=== PATIENT | male | born 1980 | race Caucasian/White ===

== ENCOUNTER 2021-02-11 22:05 | Inpatient (IN) | payer MEDICAID ==
[~2021-02-11] VITALS: Ht 167.6 cm; Wt 86.6 kg
--- NOTE | 2021-02-11 22:37 | NUR ---
to bed 3, c/o ble swelling and pain, legs are weeping. stating it is difficult to ambulate. a/ox3.
--- NOTE | 2021-02-11 22:50 | NUR ---
patient arrived with a MILIND picc line one lumen, able to flush line. no blood return. patient states he is on iv abx merrem at home.
[2021-02-11] MEDS ORDERED: VANCOMYCIN 1 GM in IV D5W 250 ML IV ONE (23:00)
[2021-02-11] MEDS ORDERED: IV NS 0.9% 500 ML BAG IV ONE (23:00)
[2021-02-11] MEDS ORDERED: ONDANSETRON HCL/PF 4 MG/2 ML VIAL IVP ONE (23:00)
[2021-02-11] MEDS ORDERED: ONDANSETRON HCL/PF 4 MG/2 ML VIAL ONE (23:10)
[2021-02-11] MEDS ORDERED: VANCOMYCIN 1 GM VIAL ONE (23:11)
[2021-02-11 23:39] LABS: BASOPHILS # (AUTO) 0.1 K/uL (0.0-0.2); BASOPHILS % (AUTO) 0.5 % (0.0-2.0); EOSINOPHILS % (AUTO) 0.1 % (0.0-6.0); HEMATOCRIT 32 % (39-51); HEMOGLOBIN 10.9 g/dL (13.5-17.5); LYMPHOCYTES # (AUTO) 0.6 K/uL (0.8-4.8); LYMPHOCYTES % (AUTO) 3.6 % (20.0-44.0); MEAN CORPUSCULAR HGB CONC 34 g/dl (31.0-36.0); MEAN CORPUSCULAR VOLUME 79 fL (80-96); MONOCYTES # (AUTO) 0.8 K/uL (0.1-1.30); MONOCYTES % (AUTO) 5.2 % (2.0-12.0); NEUTROPHILS # (AUTO) 14.5 K/uL (1.8-8.9); NEUTROPHILS % (AUTO) 90.6 % (43.0-81.0); PLATELET COUNT (AUTO) 474 K/uL (150-450); RED BLOOD CELL COUNT(AUTO) 4.03 MIL/uL (4.5-6.0)
[2021-02-12 00:05] LABS: ALANINE AMINOTRANSFERASE 27 U/L (12-78); ALKALINE PHOSPHATASE 198 U/L (46-116); ASPARTATE AMINOTRANSFERASE 25 U/L (15-37); BILIRUBIN,DIRECT 0.2 mg/dL (0.0-0.2); BILIRUBIN,TOTAL 0.7 mg/dL (0.2-1.0); CALCIUM, SERUM 9.1 mg/dL (8.5-10.1); CARBON DIOXIDE 19 mmol/L (21-32); CREATININE 3.1 mg/dL (0.6-1.3); GLUCOSE 114 mg/dL (74-106); LIPASE 282 U/L (73-393); TOTAL PROTEIN, SERUM 9.2 g/dL (6.4-8.2); UREA NITROGEN, BLOOD 74 mg/dL (7-18)
[2021-02-12 00:18] LABS: CHLORIDE 83 mmol/L (98-107)
[2021-02-12 00:20] LABS: POTASSIUM 8.8 mmol/L (3.5-5.1); SODIUM SERUM 114 mmol/L (136-145)
[2021-02-12] MEDS ORDERED: INSULIN REGULAR, HUMAN 100 UNIT/ML 10 ML VIAL ONE (00:27)
[2021-02-12] MEDS ORDERED: DEXTROSE 50%-WATER 50 ML DISP.SYRIN ONE (00:27)
[2021-02-12] MEDS ORDERED: FUROSEMIDE 20 MG/2 ML VIAL ONE (00:27)
[2021-02-12] MEDS ORDERED: CALCIUM CHLORIDE 1,000 MG/10 ML DISP.SYRIN ONE (00:27)
[2021-02-12] MEDS ORDERED: SODIUM BICARBONATE SYR 50 MEQ/50 ML DISP.SYRIN ONE ×2 (00:27→01:57)
[2021-02-12] MEDS ORDERED: SODIUM POLYSTYRENE SULFONATE 15 G/60 ML BOTTLE ONE ×2 (00:29→03:08)
[2021-02-12] MEDS ORDERED: CALCIUM CHLORIDE 1,000 MG/10 ML DISP.SYRIN IV ONE (00:30)
[2021-02-12] MEDS ORDERED: SODIUM BICARBONATE SYR 50 MEQ/50 ML DISP.SYRIN IV ONE (00:30)
[2021-02-12] MEDS ORDERED: INSULIN REGULAR, HUMAN 100 UNIT/ML 10 ML VIAL IV ONE (00:30)
[2021-02-12] MEDS ORDERED: FUROSEMIDE 40 MG/4 ML VIAL IV ONE (00:30)
[2021-02-12] MEDS ORDERED: DEXTROSE 50%-WATER 50 ML DISP.SYRIN IV ONE (00:30)
[2021-02-12] MEDS ORDERED: SODIUM BICARBONATE SYR 100 MEQ in IV D5W 1,000 ML IV ONE (00:30)
[2021-02-12] MEDS ORDERED: ALBUTEROL FS 2.5 MG/3 ML VIAL.NEB NEB ONE (00:30)
[2021-02-12] MEDS ORDERED: SODIUM POLYSTYRENE SULFONATE 15 G/60 ML BOTTLE PO ONE ×2 (00:30→02:00)
[2021-02-12] MEDS ORDERED: Sodium Bicarbonate 50 MEQ/50 ML VIAL IV ONE (01:40)
[2021-02-12] MEDS ORDERED: ALBUTEROL FS 2.5 MG/3 ML VIAL.NEB ONE (02:03)
--- NOTE | 2021-02-12 02:10 | NUR ---
MRSA SWAB COLLECTED AND SENT TO LAB. PATIENT'S BELONGINGS LIST DONE.
[2021-02-12] MEDS ORDERED: CLONIDINE HCL 0.1 MG TABLET PO PRN (03:30)
[2021-02-12] MEDS ORDERED: ACETAMINOPHEN 325 MG TABLET PO PRN (03:30)
[2021-02-12] MEDS ORDERED: IV 1/2NS 1000 ML 1,000 ML IV PRN (03:30)
[2021-02-12] MEDS ORDERED: HYDROCODONE/APAP 5/325MG TABLET PO PRN (03:30)
[2021-02-12] MEDS ORDERED: ONDANSETRON HCL/PF 4 MG/2 ML VIAL IV PRN (03:30)
[2021-02-12 03:42] LABS: BILIRUBIN,URINE NEGATIVE (NEGATIVE); COLOR,URINE YELLOW (YELLOW); LEUKOCYTE ESTERASE ,URINE TRACE (NEGATIVE); NITRITE, URINE NEGATIVE (NEGATIVE); PROTEIN,URINE NEGATIVE (NEGATIVE); UGLUCOSE NEGATIVE (NEGATIVE); UROBILINOGEN,URINE 0.2 EU/dL (0.2)
[2021-02-12] MEDS ORDERED: MEROPENEM 1 G in IV NS 0.9% 100 ML IV ONE (04:00)
--- NOTE | 2021-02-12 04:06 | NUR ---
CALLED OVERNIGHT PHARMACY TO HAVE MEDS VERIFIED
[2021-02-12] MEDS ORDERED: MEROPENEM 1 G VIAL IV ONE (04:07)
[2021-02-12 04:14] LABS: BACTERIA,URINE Rare /HPF (None Seen); RBC,URINE 0-2 /HPF (0-2); SQUAMOUS EPITHELIAL CELL,UR Few /HPF (None Seen); YEAST,URINE Few /HPF (None Seen)
[2021-02-12 05:31] LABS: BASOPHILS # (AUTO) 0.1 K/uL (0.0-0.2); BASOPHILS % (AUTO) 0.6 % (0.0-2.0); EOSINOPHILS % (AUTO) 0.3 % (0.0-6.0); HEMATOCRIT 28 % (39-51); HEMOGLOBIN 9.7 g/dL (13.5-17.5); LYMPHOCYTES # (AUTO) 0.6 K/uL (0.8-4.8); LYMPHOCYTES % (AUTO) 4.2 % (20.0-44.0); MEAN CORPUSCULAR HGB CONC 35 g/dl (31.0-36.0); MEAN CORPUSCULAR VOLUME 78 fL (80-96); MONOCYTES # (AUTO) 1.1 K/uL (0.1-1.30); NEUTROPHILS % (AUTO) 86.9 % (43.0-81.0); PLATELET COUNT (AUTO) 416 K/uL (150-450); RED BLOOD CELL COUNT(AUTO) 3.56 MIL/uL (4.5-6.0); WHITE BLOOD COUNT (AUTO) 13.8 K/uL (4.3-11.0)
[2021-02-12 05:53] LABS: ALBUMIN 2.4 g/dL (3.4-5.0); BILIRUBIN,TOTAL 0.7 mg/dL (0.2-1.0); CALCIUM, SERUM 8.2 mg/dL (8.5-10.1); CREATININE 2.8 mg/dL (0.6-1.3); POTASSIUM 5.1 mmol/L (3.5-5.1); TOTAL PROTEIN, SERUM 7.4 g/dL (6.4-8.2)
--- NOTE | 2021-02-12 06:26 | NUR ---
informed dr. [facility] critical lab for na 119. patient currently running na bicarb @100. k level now 5.1. received orders to stop na bicarb, charge ivf order to ns@100. fluid restriction 500ml and sodium chloride 1000mg q TID. order read back noted and carried out.
[2021-02-12] MEDS: IV NS 0.9% 1,000 ML IV PRN (06:33)
--- NOTE | 2021-02-12 07:29 | NUR ---
ASSESSED PT AWAKE ON BED AAOX4, NOT IN RESPIRATORY DISTRESS, V/S STABLE, KEPT RESTED AND COMFORTABLE. WILL CONTINUE TO MONITOR.
--- NOTE | 2021-02-12 08:15 | NUR ---
AT BEDSIDE FOR PT EVAL.
--- NOTE | 2021-02-12 08:32 | NUR ---
PER RN NENET CALL BACK IN 15MINS STILL PASSING MEDS.
--- NOTE | 2021-02-12 08:38 | NUR ---
REPORT GIVEN TO ELIZABET GUERRA FOR HEAVEN.
[2021-02-12] MEDS ORDERED: MEROPENEM 1 G in IV NS 0.9% 100 ML IV SCH (09:00)
[2021-02-12] MEDS ORDERED: LEVOTHYROXINE SODIUM 50 MCG TABLET PO SCH (09:00)
[2021-02-12 09:15] VITALS: BP 116/72
--- NOTE | 2021-02-12 09:15 | NUR ---
HEALTH CARE ADMINISTRATOR ADMITTING NOTES RECEIVED PATIENT FROM E.R ACCOMPANIED BY NICHOL, RN. PATIENT IS AWAKE, ALERT AND ORIENTED X 4, ABLE TO MAKE NEEDS KNOWN. ON ROOM AIR TOLERATING WELL, NO SOB NOTED. IN NO ACUTE DISTRESS NOTED. NO COMPLAINTS OF PAIN AT THE TIME OF ASSESSMENT. VITAL SIGNS TAKEN AND RECORDED FOLLOWS: TEMP 97.7, DE 98, RR 18, BP 116/72, O2 SAT AT 98%. IV ACCESS ON MILIND PICC LINE, ONGOING NS 1L X 75CC/HR. INFUSING WELL, NO S/SX OF INFILTRATION NOTED. NOTED WITH CELLULITIS ON BLE. EDEMA ON BLE (3+) PICTURES TAKEN AND FILED TO CHART. WOUND CONSULT TRIGGERED. ON FLUID ORAL FLUID LIMITS OF 500 ML/DAY, PATIENT IS AWARE. HOOKED TO TELE MONITOR SHOWING SINUS RHYTHM HR AT 70'S. SAFETY PRECAUTIONS IN PLACE: BED ON LOWEST LOCKED POSITION. CALL LIGHT WITHIN EASY REACH. SIDE RAILS UP X 2, WILL CONTINUE TO MONITOR PATIENT ACCORDINGLY.
[2021-02-12 09:30] VITALS: BP 116/72
--- NOTE | 2021-02-12 10:15 | NUR ---
RN NOTES PATIENT REFUSED DVT PUMP.
[2021-02-12] MEDS: METHADONE HCL 10 MG TABLET PO SCH (10:17)
[2021-02-12] MEDS: SODIUM CHLORIDE 1000 MG TABLET PO SCH ×3 (10:17→16:26)
[2021-02-12] MEDS: ALLOPURINOL 100 MG TABLET PO SCH ×2 (10:17→16:26)
[2021-02-12] MEDS: MEROPENEM 1 G in IV NS 0.9% 100 ML IV SCH (15:26)
[2021-02-12 16:00] VITALS: BP 104/59
--- NOTE | 2021-02-12 18:22 | NUR ---
ULTIMATE HOOPS TRAINER CLOSING NOTES PATIENT IN BED, AWAKE, ALERT AND ORIENTED X 4, ABLE TO MAKE NEEDS KNOWN. ON ROOM AIR TOLERATING WELL, NO SOB NOTED. IN NO ACUTE DISTRESS NOTED. NO COMPLAINTS OF PAIN AT THE TIME IV ACCESS ON MILIND PICC LINE, ONGOING NS 1L X 75CC/HR. INFUSING WELL, NO S/SX OF INFILTRATION NOTED. CELLULITIS ON BLE, WOUND CARE DONE, EDEMA ON BLE (3+). ON ORAL FLUID LIMITS OF 500 ML/DAY, PATIENT IS AWARE. ON TELE MONITOR SHOWING SINUS RHYTHM HR AT 80'S. SAFETY PRECAUTIONS IN PLACE: BED ON LOWEST LOCKED POSITION. CALL LIGHT WITHIN EASY REACH. SIDE RAILS UP X 2, ALL NEEDS ATTENDED AND MET, DUE MEDS GIVEN ORDERED. WILL ENDORSE TO ONCOMING SHIFT FOR HEAVEN.
--- NOTE | 2021-02-12 19:00 | NUR ---
PEST CONTROL WORKER OPENING NOTE RECEIVED PT AWAKE IN BED. A/OX4. PT STABLE ON ROOM AIR. NO SOB NOTED, NO S/S OF RESPIRATORY DISTRESS. PT IS ON EXTERNAL CHECKER CASHIER READING ST 102. NO C/O PAIN AT THIS TIME. IV ACCESS IN R UPPER PICC LINE, INFUSING NS @ 100ML/HR. IV IS INTACT, PATENT AND FLUSHING WELL. CELLULITIS ON BLE, EDEMA ON BLE 3+. SAFETY MEASURES MAINTAINED TAT ALL TIMES. BED IN LOWEST LOCKED POSITION, HOB ELEVATED, SIDE RAILS UP X2. CALL LIGHT AND TABLE WITHIN REACH. WILL CONTINUE WITH PLAN OF CARE.).
[2021-02-12 20:00] VITALS: BP 101/61
[2021-02-12] MEDS: SODIUM BICARBONATE 650 MG TABLET PO SCH (20:50)
[2021-02-12] MEDS: OLANZAPINE 10 MG TABLET PO SCH (21:10)
[2021-02-12] MEDS: VANCOMYCIN 1.25 GM in IV D5W 250 ML IV SCH (22:42)
[2021-02-13] VITALS: BP 93/58
[2021-02-13 01:15] LABS: BILIRUBIN,URINE NEGATIVE (NEGATIVE); COLOR,URINE YELLOW (YELLOW); LEUKOCYTE ESTERASE ,URINE NEGATIVE (NEGATIVE); NITRITE, URINE NEGATIVE (NEGATIVE); PH,URINE 5.5 (5.0-8.0); PROTEIN,URINE TRACE mg/dl (NEGATIVE); UGLUCOSE NEGATIVE (NEGATIVE); UROBILINOGEN,URINE 0.2 EU/dL (0.2)
[2021-02-13 02:31] LABS: BACTERIA,URINE Moderate /HPF (None Seen); SQUAMOUS EPITHELIAL CELL,UR Few /HPF (None Seen); WBC,URINE 51-80 /HPF (0-3); YEAST,URINE Many /HPF (None Seen)
[2021-02-13 04:00] VITALS: BP 94/56
[2021-02-13 04:06] LABS: EOSINOPHIL,URINE Few
[2021-02-13] MEDS: MEROPENEM 1 G in IV NS 0.9% 100 ML IV SCH ×2 (04:07→15:25)
[2021-02-13] MEDS: IV NS 0.9% 1,000 ML IV PRN (04:16)
[2021-02-13 06:14] LABS: BASOPHILS # (AUTO) 0.1 K/uL (0.0-0.2); BASOPHILS % (AUTO) 1.1 % (0.0-2.0); EOSINOPHILS % (AUTO) 3.3 % (0.0-6.0); HEMATOCRIT 24 % (39-51); HEMOGLOBIN 8.3 g/dL (13.5-17.5); LYMPHOCYTES # (AUTO) 0.7 K/uL (0.8-4.8); LYMPHOCYTES % (AUTO) 11.3 % (20.0-44.0); MEAN CORPUSCULAR HGB CONC 35 g/dl (31.0-36.0); MEAN CORPUSCULAR VOLUME 79 fL (80-96); MONOCYTES # (AUTO) 0.6 K/uL (0.1-1.30); NEUTROPHILS # (AUTO) 4.7 K/uL (1.8-8.9); NEUTROPHILS % (AUTO) 74.3 % (43.0-81.0); PLATELET COUNT (AUTO) 356 K/uL (150-450); RED BLOOD CELL COUNT(AUTO) 2.98 MIL/uL (4.5-6.0); WHITE BLOOD COUNT (AUTO) 6.4 K/uL (4.3-11.0)
--- NOTE | 2021-02-13 06:30 | NUR ---
CONTRACT SPECIALIST CLOSING NOTE RECEIVED PT AWAKE IN BED.A/OX4. PT STABLE ON ROOM AIR.NO SOB NOTED, NO S/S OF RESPIRATORY DISTRESS. PT IS BR. PT IS ON EXTERNAL CARDIAC MONITORING READING SR @71. PT DENIES PAIN OR DISCOMFORT AT THIS TIME. . ALL NEEDS HAVE BEEN MET. . SAFETY, SEIZURE, AND ASPIRATION PRECAUTIONS MAINTAINED AT ALL TIMES. BED IN LOWEST LOCKED POSITION WITH BED ALARM ON SIDE RAILS UP X2. HOB ELEVATED. CALL LIGHT AND TABLE WITHIN REACH. WILL ENDORSE TO ONCOMING NURSE FOR HEAVEN. Addendum: 02/13/21 at 0727 by HARITHA GOMEZ RN CONTRACT SPECIALIST CLOSING NOTE RECEIVED PT AWAKE IN BED.A/OX4. PT STABLE ON ROOM AIR.NO SOB NOTED, NO S/S OF RESPIRATORY DISTRESS. PT IS BR. PT IS ON EXTERNAL CARDIAC MONITORING READING ST @101. PT DENIES PAIN OR DISCOMFORT AT THIS TIME. . ALL NEEDS HAVE BEEN MET. . SAFETY, SEIZURE, AND ASPIRATION PRECAUTIONS MAINTAINED AT ALL TIMES. BED IN LOWEST LOCKED POSITION WITH BED ALARM ON SIDE RAILS UP X2. HOB ELEVATED. CALL LIGHT AND TABLE WITHIN REACH. WILL ENDORSE TO ONCOMING NURSE FOR HEAVEN.
[2021-02-13 07:31] LABS: ALBUMIN 1.9 g/dL (3.4-5.0); BILIRUBIN,TOTAL 0.5 mg/dL (0.2-1.0); CALCIUM, SERUM 6.9 mg/dL (8.5-10.1); CREATININE 2.2 mg/dL (0.6-1.3); MAGNESIUM 1.9 mg/dL (1.8-2.4); PHOSPHORUS 6.4 mg/dL (2.5-4.9); POTASSIUM 3.6 mmol/L (3.5-5.1)
--- NOTE | 2021-02-13 07:36 | NUR ---
CLUB CONCIERGE OPENING NOTE RECEIVED PATIENT STANDING NEXT TO BED, ALERT AND ORIENTED X 4. NOT IN ANY APPARENT DISTRESS. IV ACCESS MILIND PICC LINE PATENT AND INTACT. EXTERNAL TELE MONITOR WITH ST 111. BREATHING IS EVEN AND UNLABORED. TOLERATING WELL ON ROOM AIR. SAFETY MEASURES IN PLACE WITH BED LOCKED AT LOW POSITION AND SIDE RAILS UP X2. CALL LIGHT IS WITHIN REACH. WILL CONTINUE TO MONITOR THROUGHOUT SHIFT.
[2021-02-13 08:12] VITALS: BP 96/54
[2021-02-13] MEDS: ALLOPURINOL 100 MG TABLET PO SCH ×2 (08:48→16:39)
[2021-02-13] MEDS: SODIUM BICARBONATE 650 MG TABLET PO SCH ×3 (08:48→16:39)
[2021-02-13] MEDS: METHADONE HCL 10 MG TABLET PO SCH (08:48)
[2021-02-13] MEDS: SODIUM CHLORIDE 1000 MG TABLET PO SCH ×3 (08:48→16:39)
[2021-02-13] MEDS ORDERED: HYDR-4303 PO (09:18)
[2021-02-13] MEDS ORDERED: MERO1VIA23 IV (09:18)
[2021-02-13] MEDS ORDERED: ONDA4VIA52 IJ (09:18)
[2021-02-13] MEDS ORDERED: SODI1TAB66 PO (09:18)
[2021-02-13] MEDS ORDERED: ALLO100T PO (09:18)
[2021-02-13] MEDS ORDERED: OLAN10TA3 PO (09:18)
[2021-02-13] MEDS ORDERED: FERR325T23 PO (09:18)
[2021-02-13] MEDS ORDERED: SODI650T PO (09:18)
--- NOTE | 2021-02-13 10:09 | NUR ---
WOUND CARE CONSULT: PT PRESENTS WITH RT THIGH WOUND AND BILATERAL LOWER LEG AND FOOT WOUNDS, PRESENT ON ADMISSION. PT DID NOT WANT LOWER LEG/FOOT DRESSINGS REMOVED. SURGICAL AND DPM CONSULTS CALLED TO DR MTZ AND DR EISENBERG. PT IS CONTINENT AND ABLE TO REPOSITION HIMSELF IN BED. MD IN AGREEMENT WITH PLAN OF CARE.
[2021-02-13] MEDS ORDERED: SULF1TAB48 PO (11:16)
[2021-02-13] MEDS ORDERED: CIPR-262 PO (11:16)
[2021-02-13 12:00] VITALS: BP 101/64
[2021-02-13 16:26] VITALS: BP 92/50
--- NOTE | 2021-02-13 18:29 | NUR ---
BROKERAGE PURCHASE AND SALE CLERK CLOSING NOTE PATIENT IS ASLEEP IN BED, RESTING COMFORTABLY. NOT IN ANY APPARENT DISTRESS. . BREATHING IS EVEN AND UNLABORED. TOLERATING WELL ON ROOM AIR. SAFETY MEASURES MAINTAINED. CALL LIGHT IS WITHIN REACH. WILL ENDORSE CONTINUITY OF CARE TO ONCOMING SHIFT.
--- NOTE | 2021-02-13 19:20 | NUR ---
RN OPENING NOTE RECEIVED PT AWAKE IN BED, WATCHING TV. A/OX4, DENIES PAIN/DISCOMFORT. RESPIRATIONS EVEN/UNLABORED, ON ROOM AIR, NO SOB. IV SITE MILIND PICC LINE INTACT/PATENT. ON TELE MONITOR, CURRENTLY ST 106. NOTED WITH WOUND DRESSINGS TO BLE C/D/I. PT IN NO ACUTE DISTRESS. SAFETY MEASURES IN PLACE, BED IN LOWEST LOCKED POSITION, S/R UP X2, CALL LIGHT WITHIN REACH. WILL CONT TO MONITOR.
[2021-02-13 20:27] VITALS: BP 96/48
[2021-02-13] MEDS: OLANZAPINE 10 MG TABLET PO SCH (21:21)
[2021-02-13] MEDS: VANCOMYCIN 1.25 GM in IV D5W 250 ML IV SCH (22:03)
[2021-02-13] MEDS: IV NS 0.9% 1,000 ML IV SCH (22:37)
[2021-02-14 00:02] VITALS: BP 88/46
[2021-02-14 02:16] VITALS: BP 98/56
[2021-02-14] MEDS: MEROPENEM 1 G in IV NS 0.9% 100 ML IV SCH ×2 (03:03→15:49)
[2021-02-14 04:00] VITALS: BP 98/65
--- NOTE | 2021-02-14 06:06 | NUR ---
RN NOTE PT CALLED AND STATED, "THE IV LINE IS OUT. I DON'T KNOW HOW" NOTED MILIND PICC LINE IS ALL THE WAY OUT, UNDER HIS ARM. THE CATH TIP IS INTACT, AND NO BLEEDING WAS NOTED ON THE PT. CHARGE NURSE MADE AWARE. REINSERTED PERIPHERAL IV ON L-LAT.WRIST #22G, WITH GOOD BLOOD RETURN. PT TOLERATED IT WELL.
[2021-02-14 06:20] LABS: BASOPHILS # (AUTO) 0.1 K/uL (0.0-0.2); BASOPHILS % (AUTO) 1.3 % (0.0-2.0); EOSINOPHILS % (AUTO) 6.1 % (0.0-6.0); HEMATOCRIT 22 % (39-51); HEMOGLOBIN 7.9 g/dL (13.5-17.5); LYMPHOCYTES # (AUTO) 0.8 K/uL (0.8-4.8); LYMPHOCYTES % (AUTO) 13.6 % (20.0-44.0); MEAN CORPUSCULAR HGB CONC 36 g/dl (31.0-36.0); MEAN CORPUSCULAR VOLUME 80 fL (80-96); MONOCYTES # (AUTO) 0.9 K/uL (0.1-1.30); MONOCYTES % (AUTO) 14.3 % (2.0-12.0); NEUTROPHILS % (AUTO) 64.7 % (43.0-81.0); PLATELET COUNT (AUTO) 370 K/uL (150-450); RED BLOOD CELL COUNT(AUTO) 2.81 MIL/uL (4.5-6.0); WHITE BLOOD COUNT (AUTO) 6.2 K/uL (4.3-11.0)
--- NOTE | 2021-02-14 06:50 | NUR ---
RN CLOSING NOTE PT RESTING IN BED, EASILY AROUSABLE TO STIMULI. A/OX4, NO C/O PAIN/DISCOMFORT. ON ROOM AIR, NO SOB. IV SITE L-LAT.WRIST #22 INTACT/PATENT. ON TELE MONITOR, CURRENTLY SR @86. WOUND DRESSINGS TO BLE C/D/I. NO ACUTE EVENTS DURING THE NIGHT. SAFETY MEASURES MAINTAINED, BED IN LOWEST LOCKED POSITION, S/R UPX2, CALL LIGHT WITHIN REACH. WILL ENDORSE TO NEXT SHIFT NURSE.
[2021-02-14 06:59] LABS: CALCIUM, SERUM 7.2 mg/dL (8.5-10.1); CREATININE 1.8 mg/dL (0.6-1.3)
--- NOTE | 2021-02-14 07:30 | NUR ---
RN OPENING NOTE PT AWAKE IN BED RESTING. CURRENTLY ON RA WITH NO SOB OR RESPIRATORY DISTRESS PRESENT. A/O X4 AND CITIZEN OF [place] SPEAKING. ON METAL TILE SETTER. NO EDEMA PRESENT. ON BEDREST. SKIN ISSUES PRESENT, PICTURES IN CHART, WOUND CARE ORDERED. ON FLUID RESTRICTION OF 200 ML/DAY. IV PRESENT ON L WRIST 22G AND FLUSHES WELL. IVF RUNNING. LABS AND ORDERS REVIEWED. SAFETY MEASURES IN PLACE. SIDE RAILS RAISED. BED LOWERED. CALL LIGHT WITHIN REACH. WILL CONTINUE TO MONITOR.
[2021-02-14 07:32] LABS: POTASSIUM 2.5 mmol/L (3.5-5.1)
--- NOTE | 2021-02-14 07:40 | NUR ---
RN NOTE LAB CALLED FOR POTASSIUM 2.3 MD NOTIFIED. WILL CONTINUE TO MONITOR.
[2021-02-14 08:00] VITALS: BP 93/59
[2021-02-14 08:07] LABS: CREATININE, URINE 36.2 MG/DL (30.0-125.0); URINE TOTAL PROTEIN 34.6 mg/dL (0-11.9)
[2021-02-14] MEDS: IV NS 0.9% 1,000 ML IV SCH ×2 (08:35→18:33)
[2021-02-14] MEDS: ALLOPURINOL 100 MG TABLET PO SCH ×2 (08:35→16:24)
[2021-02-14] MEDS: METHADONE HCL 10 MG TABLET PO SCH (08:35)
[2021-02-14] MEDS: SODIUM BICARBONATE 650 MG TABLET PO SCH ×3 (08:35→16:24)
[2021-02-14] MEDS: SODIUM CHLORIDE 1000 MG TABLET PO SCH ×3 (08:35→16:24)
[2021-02-14 10:07] LABS: *SPE A/G RATIO 0.6 (0.7-1.7); *SPE ALPHA-1-GLOBULIN 0.2 g/dL (0.0-0.4); *SPE ALPHA-2-GLOBULIN 0.7 g/dL (0.4-1.0); *SPE BETA GLOBULIN 0.8 g/dL (0.7-1.3); *SPE M-SPIKE Not Observed g/dL (Not Observed)
[2021-02-14] MEDS: POTASSIUM CHLORIDE 20 MEQ TAB.PRT.SR PO SCH ×2 (10:08→11:32)
[2021-02-14] MEDS: POTASSIUM CL. PREMIX PERIPHER. 50 ML IV SCH ×8 (10:08→17:01)
[2021-02-14] MEDS ORDERED: LINEZOLID RTU BAG 600 MG in PREMIX 1 EA IV SCH (11:00)
--- NOTE | 2021-02-14 15:25 | NUR ---
SS Consult: ALEXIS requested for SSI application information. SW met with pt. bedside and provided him with instructions on different ways to apply for SSI. Pt. was receptive and stated he has started the online application and will follow up with his PCP for the completion of it. SS will be available as needed.
[2021-02-14 16:00] VITALS: BP 96/59
--- NOTE | 2021-02-14 16:00 | NUR ---
RN NOTE PT NO LONGER TOLERATING POTASSIUM IV DUE TO PAIN. REFUSES ADMINISTRATION OF POTASSIUM IV. EDUCATED PT ON RISKS AND BENEFITS OF DOING SO. WILL CONTINUE TO MONITOR.
[2021-02-14] MEDS: FLUCONAZOLE (100 MG) 100 MG TABLET PO SCH (16:24)
--- NOTE | 2021-02-14 17:56 | NUR ---
RN CLOSING NOTE PT AWAKE IN BED RESTING. CURRENTLY ON RA WITH NO SOB OR RESPIRATORY DISTRESS PRESENT. A/O X4 AND [place]ESE SPEAKING. ON ART LIBRARIAN. NO EDEMA PRESENT. ON BEDREST. SKIN ISSUES PRESENT, PICTURES IN CHART, WOUND CARE ORDERED. ON FLUID RESTRICTION OF 500 ML/DAY. IV PRESENT ON L WRIST 22G AND FLUSHES WELL. IVF RUNNING. ROUTINE MEDS GIVEN. LABS AND ORDERS REVIEWED. SAFETY MEASURES IN PLACE. SIDE RAILS RAISED. BED LOWERED. CALL LIGHT WITHIN REACH. REPORT TO BE GIVEN TO NIGHT NURS FOR HEAVEN.
--- NOTE | 2021-02-14 19:00 | NUR ---
COURTESY DRIVER OPENING NOTE RECEIVED PT AWAKE IN BED. A/OX4. PT STABLE ON ROOM AIR. NO SOB NOTED, NO S/S OF RESPIRATORY DISTRESS. PT IS ON EXTERNAL SEWING MACHINE BOBBIN WINDER READING. NO C/O PAIN AT THIS TIME. IV ACCESS IN RIGHT WRIST # 20,, IV IS INTACT, PATENT, AND FLUSHING WELL. SAFETY MEASURES MAINTAINED TAT ALL TIMES. BED IN LOWEST LOCKED POSITION, HOB ELEVATED, SIDE RAILS UP X2. CALL LIGHT AND TABLE WITHIN REACH. WILL CONTINUE WITH PLAN OF CARE.
[2021-02-14 20:00] VITALS: BP 98/63
[2021-02-14] MEDS: OLANZAPINE 10 MG TABLET PO SCH (22:11)
[2021-02-14] MEDS: VANCOMYCIN 1.5 GM in IV D5W 500ml IV SCH (22:29)
[2021-02-15] VITALS: BP 80/44
[2021-02-15] MEDS: MEROPENEM 1 G in IV NS 0.9% 100 ML IV SCH ×2 (03:29→15:02)
[2021-02-15 04:00] VITALS: BP 84/46
[2021-02-15] MEDS: IV NS 0.9% 1,000 ML IV SCH ×2 (05:18→14:57)
[2021-02-15 06:11] LABS: BASOPHILS # (AUTO) 0.2 K/uL (0.0-0.2); BASOPHILS % (AUTO) 3.7 % (0.0-2.0); EOSINOPHILS % (AUTO) 8.1 % (0.0-6.0); HEMATOCRIT 23 % (39-51); HEMOGLOBIN 7.8 g/dL (13.5-17.5); LYMPHOCYTES % (AUTO) 22.3 % (20.0-44.0); MEAN CORPUSCULAR HGB CONC 35 g/dl (31.0-36.0); MEAN CORPUSCULAR VOLUME 80 fL (80-96); MONOCYTES # (AUTO) 0.7 K/uL (0.1-1.30); MONOCYTES % (AUTO) 15.5 % (2.0-12.0); NEUTROPHILS # (AUTO) 2.4 K/uL (1.8-8.9); NEUTROPHILS % (AUTO) 50.4 % (43.0-81.0); PLATELET COUNT (AUTO) 403 K/uL (150-450); RED BLOOD CELL COUNT(AUTO) 2.79 MIL/uL (4.5-6.0); WHITE BLOOD COUNT (AUTO) 4.7 K/uL (4.3-11.0)
--- NOTE | 2021-02-15 06:22 | NUR ---
BANQUET SERVER ON CALL CLOSING NOTE PT IS AWAKE IN BED AT THIS TIME.A/OX4, ABLE TO MAKE NEEDS KNOWN. PT IS BR, STABLE ON ROOM AIR. NO SOB, S/S OF RESPIRATORY DISTRESS NOTED. PT DENIES PAIN OR DISCOMFORT AT THIS TIME. BLE+3 EDEMA . IV ACCESS IN RIGHT UPPER ARM MIDLINE # 18, INTACT, PATENT AND INFUSING NS @100ML/HR. ALL NEEDS HAVE BEEN MET. SAFETY, SEIZURE, AND ASPIRATION PRECAUTIONS MAINTAINED AT ALL TIMES. BED IN LOWEST LOCKED POSITION WITH BED ALARM ON, SIDE RAILS UPX2, HOB ELEVATED, CALL LIGHT AND TABLE WITHIN REACH. WILL ENDORSE TO ONCOMING NURSE FOR HEAVEN.
[2021-02-15 06:55] LABS: CALCIUM, SERUM 7.4 mg/dL (8.5-10.1); CREATININE 1.6 mg/dL (0.6-1.3); POTASSIUM 3.3 mmol/L (3.5-5.1)
--- NOTE | 2021-02-15 07:41 | NUR ---
SOCIAL HUMAN SERVICES ASSISTANTS OPENING NOTES Pt is awake, A/O X 4, no respiratory distress, no SOB. IV hydration NS @100cc/hr. Safety precautions implemented, bed locked in lowest position, call light within reach. Patient signed consent for nuclear medicine parathyroid, will have scan later this morning.
[2021-02-15 08:00] VITALS: BP 102/67
[2021-02-15] MEDS: SODIUM BICARBONATE 650 MG TABLET PO SCH ×3 (08:16→17:13)
[2021-02-15] MEDS: SODIUM CHLORIDE 1000 MG TABLET PO SCH ×3 (08:16→17:12)
[2021-02-15] MEDS: METHADONE HCL 10 MG TABLET PO SCH (08:16)
[2021-02-15] MEDS: FLUCONAZOLE (100 MG) 100 MG TABLET PO SCH (08:16)
[2021-02-15] MEDS: ALLOPURINOL 100 MG TABLET PO SCH ×2 (08:16→17:13)
[2021-02-15 09:56] LABS: EOSINOPHILS % (MANUAL) 6 % (0-4); LYMPHOCYTES % (MANUAL) 22 % (16-48); METAMYELOCYTES % 1 % (0-0); MONOCYTES % (MANUAL) 11 % (0-11.0); MYELOCYTES % 2 % (0-0); NEUTROPHILS % (MANUAL) 58 (42-76)
[2021-02-15] MEDS ORDERED: POTASSIUM CHLORIDE 10 MEQ TABLET.SA PO ONE (10:00)
[2021-02-15] MEDS ORDERED: POTASSIUM CHLORIDE 20 MEQ TAB.PRT.SR PO ONE (11:30)
[2021-02-15] MEDS ORDERED: LEVOTHYROXINE SODIUM 50 MCG TABLET PO SCH (11:30)
[2021-02-15] MEDS: POTASSIUM CL. PREMIX PERIPHER. 50 ML IV SCH ×4 (11:47→14:00)
[2021-02-15] MEDS: FERROUS SULFATE (325 MG) 325 MG/TAB TABLET PO SCH ×2 (12:21→17:13)
--- NOTE | 2021-02-15 14:00 | NUR ---
MILK DRYING MACHINE OPERATOR NOTE Patient out for Second part of nuclear medicine parathyroid, K IV 1300 dose not given
--- NOTE | 2021-02-15 14:58 | NUR ---
HOOP DRIVING MACHINE OPERATOR HELPER NOTE Pt out for second part of Nuclear medicine, K 1400 dose IV not given.
[2021-02-15 16:02] VITALS: BP 90/60
--- NOTE | 2021-02-15 18:45 | NUR ---
RN D/C NOTE Pt A/O X 4, D/C home, no SOB, no respiratory distress. D/C papers signed, medication list explained, removed midline. belongings list completed. Wound care dressing done prior to D/C. Patient called medical transportation to pick him up, will have HH assigned by [facility].
[2021-02-15] MEDS ORDERED: VANCOMYCIN 1 GM in IV D5W 250 ML IV SCH (21:00)
== END 2021-02-15 18:30 | disposition home health service (06) | DRG 422 ==
LOC: ER 22:08 → TRANSITION 02-12 01:35 → TELE 02-12 08:31
PROVIDERS: ADMIT Internal Medicine; ATTEND Internal Medicine
PROC: 05H933Z Insertion of Infusion Device into Right Brachial Vein, Percutaneous Approach (ICD-10-PCS; principal; 2021-02-15)
DX: E87.5 Hyperkalemia (principal); E86.9 Volume depletion, unspecified; N17.0 Acute kidney failure with tubular necrosis; L03.115 Cellulitis of right lower limb; E87.2 Acidosis; L97.429 Non-pressure chronic ulcer of left heel and midfoot with unspecified severity; L03.116 Cellulitis of left lower limb; D50.9 Iron deficiency anemia, unspecified; E87.1 Hypo-osmolality and hyponatremia; F11.10 Opioid abuse, uncomplicated; E03.9 Hypothyroidism, unspecified; N18.9 Chronic kidney disease, unspecified; Z20.822 Contact with and (suspected) exposure to COVID-19; M10.9 Gout, unspecified; I87.2 Venous insufficiency (chronic) (peripheral); F17.200 Nicotine dependence, unspecified, uncomplicated; I89.0 Lymphedema, not elsewhere classified; N39.0 Urinary tract infection, site not specified; E07.81 Sick-euthyroid syndrome; L97.829 Non-pressure chronic ulcer of other part of left lower leg with unspecified severity; L97.519 Non-pressure chronic ulcer of other part of right foot with unspecified severity; E87.6 Hypokalemia
CPT/HCPCS: 36415; 71045-TC; 76770-TC; 80048-TC; 80053-TC; 80074; 80076-TC; 80202-TC; 81001; 82533; 82550-TC; 82570-TC; 82962-TC; 83540-TC; 83605-TC; 83690-TC; 83735-TC; 83970; 84100-TC; 84155; 84155-TC; 84165; 84300-TC; 84439-TC; 84443-TC; 84484-TC; 85025-TC; 85730-TC; 87040-TC; 87081-TC; 87086-TC; 87806; A6253; A6403; A6407; A9500; C9803; G0378; J1815; J1940; J2185; J2405; J3370; J3480; J3490; J7030; J7040; J7060; J7070

== ENCOUNTER 2021-03-10 16:00 | Inpatient (IN) | payer MEDICAID ==
[~2021-03-10] VITALS: Ht 167.6 cm; Wt 100.4 kg
[~2021-03-10 16:00] MED LIST: ALLO100T PO; CIPR-262 PO; FERR325T23 PO; HYDR-4303 PO; OLAN10TA3 PO; ONDA4VIA52 IJ; SODI1TAB66 PO; SODI650T PO; SULF1TAB48 PO
--- NOTE | 2021-03-10 16:10 | NUR ---
BIB RA 839 FROM HOME DUE TO WEAKNESS AND WORSENING BILATERAL LEG/FOOT EDEMA,CELLULITIS.
[2021-03-10] MEDS ORDERED: LEVO50TA8 PO (16:22)
[2021-03-10] MEDS ORDERED: METH10TA2 PO (16:22)
--- NOTE | 2021-03-10 16:30 | NUR ---
MOVE SHEET SUBMITTED AND CALLED FOR BED.
--- NOTE | 2021-03-10 16:35 | NUR ---
CALLED FOR MIDLINE RN FOR IV PLACEMENT.
[2021-03-10] MEDS ORDERED: VANCOMYCIN 1 GM in IV D5W 250 ML IV ONE (17:00)
[2021-03-10] MEDS ORDERED: PIPERACILLIN /TAZOBACTAM 3.375 G in IV D5W 50 ML IV ONE (17:00)
[2021-03-10] MEDS ORDERED: IV NS 0.9% 1,000 ML IV ONE ×3 (17:00→21:00)
--- NOTE | 2021-03-10 17:05 | NUR ---
PT TO RADIOLOGY DEPT VIA [facility]
--- NOTE | 2021-03-10 17:46 | NUR ---
CALLED HOUSE SUP FOR MIDLINE.
--- NOTE | 2021-03-10 18:16 | NUR ---
SONYA THRASHER CALLED FROM [facility] [phone] AWAITING LABS BEING FAXED TO [phone]
--- NOTE | 2021-03-10 18:28 | NUR ---
CALLED [facility] FOR READ
[2021-03-10 18:42] LABS: BASOPHILS % (AUTO) 0.1 % (0.0-2.0); EOSINOPHILS % (AUTO) 0.2 % (0.0-6.0); HEMATOCRIT 27 % (39-51); HEMOGLOBIN 9.1 g/dL (13.5-17.5); LYMPHOCYTES # (AUTO) 0.7 K/uL (0.8-4.8); LYMPHOCYTES % (AUTO) 2.7 % (20.0-44.0); MEAN CORPUSCULAR HGB CONC 33 g/dl (31.0-36.0); MEAN CORPUSCULAR VOLUME 80 fL (80-96); MONOCYTES # (AUTO) 1.3 K/uL (0.1-1.30); MONOCYTES % (AUTO) 4.9 % (2.0-12.0); NEUTROPHILS # (AUTO) 24.3 K/uL (1.8-8.9); NEUTROPHILS % (AUTO) 92.1 % (43.0-81.0); PLATELET COUNT (AUTO) 652 K/uL (150-450); WHITE BLOOD COUNT (AUTO) 26.3 K/uL (4.3-11.0)
--- NOTE | 2021-03-10 19:20 | NUR ---
PT IN BED A/OX4. TOLERATING R/A WELL WITH NO SOB; SATTING WELL AT 96%. PT CONNECTED TO POX AND TELE MONITOR. RAC#20G; PATENT AND INTACT. SAFETY MEASURES IN PLACE
[2021-03-10] MEDS ORDERED: MORPHINE SULFATE INJ 4 MG/ML DISP.SYRIN ONE (19:28)
[2021-03-10] MEDS ORDERED: ONDANSETRON HCL/PF 4 MG/2 ML VIAL ONE (19:28)
[2021-03-10] MEDS ORDERED: MORPHINE SULFATE INJ 2 MG/ML DISP.SYRIN IV ONE (19:30)
[2021-03-10] MEDS ORDERED: ONDANSETRON HCL/PF 4 MG/2 ML VIAL IV ONE (19:30)
[2021-03-10 19:31] LABS: BAND % (MANUAL) 5 % (0.0-5.0); LYMPHOCYTES % (MANUAL) 5 % (16-48); MONOCYTES % (MANUAL) 4 % (0-11.0); NEUTROPHILS % (MANUAL) 86 (42-76)
[2021-03-10 19:32] LABS: CALCIUM, SERUM 8.4 mg/dL (8.5-10.1); CARBON DIOXIDE 12 mmol/L (21-32); CHLORIDE 82 mmol/L (98-107); CREATININE 3.1 mg/dL (0.6-1.3); GLUCOSE 90 mg/dL (74-106); UREA NITROGEN, BLOOD 76 mg/dL (7-18)
[2021-03-10 19:37] LABS: SODIUM SERUM 110 mmol/L (136-145)
[2021-03-10 19:39] LABS: ALANINE AMINOTRANSFERASE 30 U/L (12-78); ALBUMIN 2.6 g/dL (3.4-5.0); ALKALINE PHOSPHATASE 190 U/L (46-116); ASPARTATE AMINOTRANSFERASE 22 U/L (15-37); BILIRUBIN,DIRECT 0.1 mg/dL (0.0-0.2); BILIRUBIN,TOTAL 0.2 mg/dL (0.2-1.0); TOTAL PROTEIN, SERUM 8.3 g/dL (6.4-8.2)
--- NOTE | 2021-03-10 19:50 | NUR ---
PHLEB AT BEDSIDE FOR REDRAW
[2021-03-10] MEDS ORDERED: CALCIUM CHLORIDE 1,000 MG/10 ML DISP.SYRIN ONE (19:59)
[2021-03-10] MEDS ORDERED: INSULIN REGULAR, HUMAN 100 UNIT/ML 10 ML VIAL ONE (19:59)
[2021-03-10] MEDS ORDERED: SODIUM BICARBONATE SYR 50 MEQ/50 ML DISP.SYRIN ONE (19:59)
[2021-03-10] MEDS ORDERED: DEXTROSE 50%-WATER 50 ML DISP.SYRIN ONE (19:59)
[2021-03-10] MEDS ORDERED: SODIUM BICARBONATE SYR 50 MEQ/50 ML DISP.SYRIN IV ONE (20:00)
[2021-03-10] MEDS ORDERED: CALCIUM CHLORIDE 1,000 MG/10 ML DISP.SYRIN IV ONE (20:00)
[2021-03-10] MEDS ORDERED: ALBUTEROL FS 2.5 MG/3 ML VIAL.NEB NEB ONE (20:00)
[2021-03-10] MEDS ORDERED: INSULIN REGULAR, HUMAN 100 UNIT/ML 10 ML VIAL IV ONE (20:00)
[2021-03-10] MEDS ORDERED: DEXTROSE 50%-WATER 50 ML DISP.SYRIN IV ONE (20:00)
[2021-03-10 20:28] LABS: CALCIUM, SERUM 7.9 mg/dL (8.5-10.1); CREATININE 2.8 mg/dL (0.6-1.3)
[2021-03-10 20:32] LABS: POTASSIUM 6.3 mmol/L (3.5-5.1)
[2021-03-10] MEDS ORDERED: ALBUTEROL FS 2.5 MG/3 ML VIAL.NEB ONE (20:34)
--- NOTE | 2021-03-10 20:42 | NUR ---
RT AT BEDSIDE FOR BREATHING TX
--- NOTE | 2021-03-10 20:50 | NUR ---
BS 88; JEAN PAUL LACEY AWARE. PT HAS NO S/SX OF HYPOGLYCEMIA. NO N/V/D.
--- NOTE | 2021-03-10 20:55 | NUR ---
S/P BREATHING TX PT SATTING 98% ON RA
[2021-03-10] MEDS ORDERED: SODIUM POLYSTYRENE SULFONATE 15 G/60 ML BOTTLE PO ONE (21:00)
--- NOTE | 2021-03-10 21:07 | NUR ---
RECIEVED ORDERS FROM DR. HAMPTON FOR INPATIENT TO TELE
[2021-03-10] MEDS ORDERED: SODIUM POLYSTYRENE SULFONATE 15 G/60 ML BOTTLE ONE (21:11)
--- NOTE | 2021-03-10 21:16 | NUR ---
ROOM 113-2 [facility]
--- NOTE | 2021-03-10 21:42 | NUR ---
REPORT GIVEN TO ARLETTE GOODEN RN
--- NOTE | 2021-03-10 21:54 | NUR ---
US TECH AT PT'S BEDSIDE
--- NOTE | 2021-03-10 22:10 | NUR ---
BS 71; OFFERED ORANGE JUICE 125ML. NO S/SX OF HYPOGLYCEMIA; N/V/D.
[2021-03-10 22:30] VITALS: BP_SYST 105; BP_SYST 131; BP_DIAS 47; BP_DIAS 76
--- NOTE | 2021-03-10 22:30 | NUR ---
LEAD PORTFOLIO MANAGER NOTE RECEIVED PATIENT VIA GURNEY. A/OX3, TOLERATING ROOM AIR. RESPIRATIONS ARE EVEN AND UNLABORED. NO S/.S SOB NOTED. C/O PAIN AT THIS TIME. ASKING FOR METHADONE. INFORMED WILL NEED TO SE DR CASTRO. TELE MONITOR READS SINUS RHYTHM HR 93. IN NO APPARENT DISTRESS. IV ACCESS IN RAC#20 PATENT AND SALINE LOCKED. INATAL ASSESSMENT CONDUCTED AT THIS TIME. SKIN ASSESSMENT COMPLETED, PHOTOS TAKEN AND PLACED IN CHART. INFORMED PATIENT ABOUT 500ML FLUID RESTRICTION. BED IS LOW AND LOCKED, HOB ELEVATED IN SEMI FOWLERS, SIDE RIAL SUP X2, CALL LIGHT WITHIN REACH.
--- NOTE | 2021-03-10 22:34 | NUR ---
PT TRANSFERRED TO [facility] TELE 113-2 VIA ACLS PROTOCOL. ALL PT BELONGINGS WITH PT. TOLERATING R/A WELL AT 97%. ENDORSED PT TO ARLETTE MCNEAL
[2021-03-10] MEDS ORDERED: ZOLPIDEM TARTRATE 10 MG TABLET PO PRN (23:00)
[2021-03-10] MEDS ORDERED: CEFEPIME 1 GM in IV D5W 50 ML IV SCH (23:00)
[2021-03-10] MEDS ORDERED: ONDANSETRON HCL/PF 4 MG/2 ML VIAL IV PRN (23:00)
[2021-03-10] MEDS: IV NS 0.9% 1,000 ML IV PRN (23:34)
[2021-03-10] MEDS: HEPARIN SODIUM, PORCINE 5000 UNITS/1 ML VIAL SQ SCH (23:35)
[2021-03-11] VITALS: BP 105/46
[2021-03-11] MEDS ORDERED: VANCOMYCIN 1.25 GM in IV D5W 250 ML IV ONE
[2021-03-11] MEDS ORDERED: CEFEPIME 1 GM VIAL ONE (00:14)
--- NOTE | 2021-03-11 02:10 | NUR ---
RN NOTE OBTAINED CONSENT FOR MRI OF THIGH WITH AND WITHOUT CONTRACT. PATIENT DID NOT WANT TO COMPLETE QUESTIONAIRE AT THIS TIME
--- NOTE | 2021-03-11 03:00 | NUR ---
RN NOTE PATIENT CONTINUES TO ASK FOR MORE FLUID EVERY ANY TIME ANYONE ENTERS THE ROOM. PATIENT INFORMED OF FLUID RESTRICTION EVERY TIME. PATIENT HAS ALREADY REACHED 500ML. PATIENT KEEPS TRYING TO GET OUT OF BED TO GET HIS OWN WATER AND SODA. FLUID HAVE BEEN REMOVED FROM ROOM.
[2021-03-11] MEDS: TRAMADOL HCL 50 MG TABLET PO PRN (03:53)
[2021-03-11] MEDS: ACETAMINOPHEN 325 MG TABLET PO PRN (03:54)
[2021-03-11 04:00] VITALS: BP 105/47
--- NOTE | 2021-03-11 04:35 | NUR ---
RN NOTE PATIENT HAS GOTTEN OUT OF BED MULTIPLE TIMES. FOUND PATIENT WHO REMOVE IV CONNECTION HIMSELF AND TRYING TO TURN OFF BED ALARM. ASKED PATIENT IF HE WAS TRYING TO GO TO THE RESTROOM HE STATED YES. I INFORMED HIM I WILL BRING A BSC TO PREVENT A FALL. I ASKED WHY HE DOESNT USE THE CALLL LIGHT IF HE NEEDS HELP, HE STATES "WELL I ASK FOR WATER AND YOU DONT BRING ME ANY" INFORMED PATIENT ABOUT FLUID RESTRICTION AGAIN. PAINTER MAINTENANCE LATER TOOK VITALS AND PATIENT STATED HE DIDNT WANT TO USE A BSC HE WANTED TO WALK TO THE RESTROOM TO GET WATER. PATIENT IS NONCOMPLIANT WITH 500ML FLUID RESTRICTION. EDUCATED HIM MULTIPLE TIMES.
--- NOTE | 2021-03-11 06:50 | NUR ---
RN NOTE A/OX3, PATIENT IS NON COMPLIANT. INFORMED OF FLUID RESTRICTION BUT CONTINUES TO SNEAK FLUIDS. TOTAL INTACT 100ML THAT I AM AWARE OF. NO RESP DISTRESS. MANAGED PAIN WITH TRAMADOL AND TYLENOL. LEFT A MESSAGE FOR THE METHADONE CLINIC TO VERIFY DOSAGE. TELE MONITOR READS SINUS RHYTHM. NO DISTRESS. IV ACCESS IN RAC#20 REMOVED D/T PATIENT GETTING OUT OF BED TO GET FLUIDS THAT WERE TAKEN AWAY.NEW IV IN MILIND #20 RUNNING NS@100. PATIENT CONTINUES TO ASK STAFF TO BRING FLUIDS, SIGN PLACED ON DOORWAY. PATIENT CONTINUES TO DESPERATELY GET FLUIDS HE HAS A BSC AND URINAL AT BEDSIDE BUT INSIST ON WALKING TO BATHROOM ALTHOUGH HE HAS BLE WRAPPED AND NONSKID SOCKS. PATIENT TRIES TO USE BSC A WALKER. INFORMED HIM MULTIPLE TIMES ABOUT SAFETY MEASURES, PATIENT IS ALSO TURN OFF OWN BED ALARM AND DISCONNECTING HIS OWN IV TO BE ABLE TO GET OUT OF BED. BED IS LOW AND LOCKED, HOB ELEVATED IN SEMI FOWLERS, SIDE RIALS UP X2, CALL LIGHT WITHIN REACH. PATIENT DID NOT WANT TO COMPLETE MRI QUESTIONNAIRE WILL ENDORSE TO NEXT SHIFT. ALSO PLACED SWAB TO COLLECT WOUND CULTURE FOR BLE.
[2021-03-11 06:51] LABS: CALCIUM, SERUM 7.8 mg/dL (8.5-10.1); CREATININE 2.6 mg/dL (0.6-1.3); POTASSIUM 4.5 mmol/L (3.5-5.1)
[2021-03-11 06:55] LABS: BASOPHILS % (AUTO) 0.2 % (0.0-2.0); EOSINOPHILS % (AUTO) 0.1 % (0.0-6.0); HEMATOCRIT 24 % (39-51); HEMOGLOBIN 8.2 g/dL (13.5-17.5); LYMPHOCYTES # (AUTO) 0.7 K/uL (0.8-4.8); MEAN CORPUSCULAR HGB CONC 35 g/dl (31.0-36.0); MEAN CORPUSCULAR VOLUME 79 fL (80-96); MONOCYTES # (AUTO) 1.3 K/uL (0.1-1.30); MONOCYTES % (AUTO) 5.4 % (2.0-12.0); NEUTROPHILS # (AUTO) 21.4 K/uL (1.8-8.9); NEUTROPHILS % (AUTO) 91.3 % (43.0-81.0); PLATELET COUNT (AUTO) 566 K/uL (150-450); RED BLOOD CELL COUNT(AUTO) 2.98 MIL/uL (4.5-6.0); WHITE BLOOD COUNT (AUTO) 23.4 K/uL (4.3-11.0)
[2021-03-11 08:00] VITALS: BP 95/39
[2021-03-11] MEDS ORDERED: HYDROCODONE/APAP 5/325MG TABLET PO PRN (08:30)
[2021-03-11] MEDS ORDERED: VANCOMYCIN 1.25 GM in IV D5W 250 ML IV SCH (09:00)
[2021-03-11] MEDS: MEROPENEM 1 G in IV NS 0.9% 100 ML IV SCH ×2 (09:12→22:25)
[2021-03-11] MEDS: SODIUM CHLORIDE 1000 MG TABLET PO SCH ×3 (09:14→17:23)
[2021-03-11] MEDS: HEPARIN SODIUM, PORCINE 5000 UNITS/1 ML VIAL SQ SCH ×2 (09:14→21:21)
[2021-03-11] MEDS: SODIUM BICARBONATE 650 MG TABLET PO SCH ×2 (09:15→17:23)
[2021-03-11] MEDS: ALLOPURINOL 100 MG TABLET PO SCH ×2 (09:15→21:19)
[2021-03-11] MEDS: FERROUS SULFATE (325 MG) 325 MG/TAB TABLET PO SCH ×2 (09:15→17:23)
[2021-03-11] MEDS: MORPHINE SULFATE INJ 2 MG/ML DISP.SYRIN IV PRN ×2 (09:23→14:26)
[2021-03-11 12:00] VITALS: BP 100/42
[2021-03-11 12:01] LABS: BILIRUBIN,URINE NEGATIVE (NEGATIVE); COLOR,URINE YELLOW (YELLOW); LEUKOCYTE ESTERASE ,URINE NEGATIVE (NEGATIVE); NITRITE, URINE NEGATIVE (NEGATIVE); PH,URINE 5.5 (5.0-8.0); PROTEIN,URINE NEGATIVE (NEGATIVE); UGLUCOSE NEGATIVE (NEGATIVE); UROBILINOGEN,URINE 0.2 EU/dL (0.2)
[2021-03-11 12:07] LABS: BACTERIA,URINE None seen /HPF (None Seen); SQUAMOUS EPITHELIAL CELL,UR None Seen /HPF (None Seen); WBC,URINE 0-2 /HPF (0-3)
[2021-03-11 14:14] LABS: CREATININE, URINE 31.5 MG/DL (30.0-125.0); URINE TOTAL PROTEIN 36.9 mg/dL (0-11.9)
[2021-03-11 16:00] VITALS: BP 128/68
[2021-03-11 20:00] VITALS: BP 104/50
--- NOTE | 2021-03-11 20:08 | NUR ---
RN NOTE RECEIVED PT AWAKE, ALERT AND ORIENTED X 3. NOT IN ANY DISTRESS. COMPLAINED OF DISCOMFORT ON BLE. WOUND DRESSINGS INTACT WITH MINIMAL DRAINAGE ON FOOT AREA. PT ON TELE MONITOR, WITH EPISODES OF REMOVING LEADS. RE-EDUCATED PATIENT, ALSO REGARDING THE FLUID RESTRICTION. PT CURRENTLY NO IV ACCESS AT THIS TIME, AWAITING FOR MIDLINE INSERTION. ALL SAFETY MEASURES IN PLACE, WILL CONTINUE TO MONITOR.
[2021-03-11] MEDS: OLANZAPINE 10 MG TABLET PO SCH (21:19)
--- NOTE | 2021-03-11 22:00 | NUR ---
RN NOTE BLOOD CULTURE GRAM POSITIVE COCCI IN CL[place]ERS, NOTIFIED DR HAMPTON. NO NEW ORDER MADE. PT CURRENTLY ON IV ATBS.
--- NOTE | 2021-03-11 22:25 | NUR ---
RN NOTE PT NEW MIDLINE INSERTED ON MILIND BY DEEPTHI ARDON. NO BLEEDING NOTED. WILL CONTINUE TO MONITOR. PAST DUE IV ATB WILL BE GIVEN.
[2021-03-11] MEDS: IV NS 0.9% 1,000 ML IV PRN (22:31)
[2021-03-11] MEDS: VANCOMYCIN 1.25 GM in IV D5W 250 ML IV SCH (23:10)
[2021-03-12] VITALS (7 sets, daily range): BP systolic 82–106; BP diastolic 37–58
[2021-03-12] MEDS: TRAMADOL HCL 50 MG TABLET PO PRN (06:01)
[2021-03-12 07:07] LABS: ALBUMIN 1.7 g/dL (3.4-5.0); BILIRUBIN,TOTAL 0.3 mg/dL (0.2-1.0); CALCIUM, SERUM 7.7 mg/dL (8.5-10.1); CREATININE 2.6 mg/dL (0.6-1.3); MAGNESIUM 2.2 mg/dL (1.8-2.4); PHOSPHORUS 5.1 mg/dL (2.5-4.9); POTASSIUM 3.3 mmol/L (3.5-5.1); TOTAL PROTEIN, SERUM 6.2 g/dL (6.4-8.2)
[2021-03-12 07:14] LABS: BASOPHILS # (AUTO) 0.1 K/uL (0.0-0.2); BASOPHILS % (AUTO) 0.6 % (0.0-2.0); HEMATOCRIT 21 % (39-51); HEMOGLOBIN 7.2 g/dL (13.5-17.5); LYMPHOCYTES # (AUTO) 0.5 K/uL (0.8-4.8); LYMPHOCYTES % (AUTO) 4.1 % (20.0-44.0); MEAN CORPUSCULAR HGB CONC 35 g/dl (31.0-36.0); MEAN CORPUSCULAR VOLUME 80 fL (80-96); MONOCYTES # (AUTO) 1.1 K/uL (0.1-1.30); MONOCYTES % (AUTO) 8.3 % (2.0-12.0); NEUTROPHILS # (AUTO) 11.5 K/uL (1.8-8.9); PLATELET COUNT (AUTO) 468 K/uL (150-450); RED BLOOD CELL COUNT(AUTO) 2.58 MIL/uL (4.5-6.0); WHITE BLOOD COUNT (AUTO) 13.3 K/uL (4.3-11.0)
--- NOTE | 2021-03-12 07:26 | NUR ---
RN NOTE PT AWAKE, ABLE TO MAKE NEEDS KNOWN. COMPLAINED OF PAIN ON BLE, TRAMADOL WAS GIVEN. PT REFUSED TO HAVE WOUND DRESSINGS CHANGED. REMAIN ON FLUID RESTRICTION. CONTINUE ON IVFLUIDS NS AT 100ML/HR. ALL NEEDS ATTENDED. ENDORSED TO NEXT SHIFT NURSE FOR HEAVEN.
--- NOTE | 2021-03-12 07:30 | NUR ---
RN NOTE PATIENT RECEIVED IN BED ALERT AND ORIENTED X 3. PATIENT ON ROOM AIR AT THIS TIME WITH NO SIGN OF RESPIRATORY DISTRESS WITH EVEN NON-LABORED BREATHING. ON CHIEF OPHTHALMIC TECHNICIAN. IV ACCESS INTACT AND PATENT CURRENTLY INFUSING 100ML/HR OF NS. PATIENT DENIES ANY PAIN AT THIS TIME. NOTED FLUID RESTRICTION. BLE WOUND DRESSING INTACT. SAFETY PRECAUTION IN PLACE WITH BED LOCKED, BED ALARM, BED IN THE LOWEST POSITION, AND CALL LIGHT WITHIN EASY REACH. WILL CONTINUE TO MONITOR.
[2021-03-12] MEDS: MEROPENEM 1 G in IV NS 0.9% 100 ML IV SCH ×2 (08:20→21:38)
[2021-03-12] MEDS: FERROUS SULFATE (325 MG) 325 MG/TAB TABLET PO SCH ×2 (08:21→17:26)
[2021-03-12] MEDS: HEPARIN SODIUM, PORCINE 5000 UNITS/1 ML VIAL SQ SCH ×2 (08:21→21:38)
[2021-03-12] MEDS: LEVOTHYROXINE SODIUM 50 MCG TABLET PO SCH (08:21)
[2021-03-12] MEDS: SODIUM BICARBONATE 650 MG TABLET PO SCH ×2 (08:21→17:26)
[2021-03-12] MEDS: ALLOPURINOL 100 MG TABLET PO SCH ×2 (08:22→21:37)
[2021-03-12] MEDS: SODIUM CHLORIDE 1000 MG TABLET PO SCH ×3 (08:22→17:26)
[2021-03-12] MEDS: IV NS 0.9% 1,000 ML IV PRN (08:24)
--- NOTE | 2021-03-12 10:00 | NUR ---
RN NOTE SPOKE WITH YOSEPH FROM [facility] , AND PATIENTS BROTHER PETE, REGARDING PATIENT MEDICATION METHADONE. RECEIVED VERBAL AUTHORIZATION OF 35 mg po ONCE DAILY FROM YOSEPH. PATIENT REQUEST AND AGREED TO SEND OUT A AUTHORIZATION USE TO DISCLOSE INFORMATION TO CLINIC, PATIENT SIGNED AND FAXED TO CLINIC . SPOKE WITH PHARMACY, INFORMED THE ORDER AND VERBAL AUTHORIZATION. PER PHARMACY STATED, ONE DOSE WILL BE GIVEN TODAY AND TOMORROW WILL FOLLOW UP WHEN THE CLINIC IS OPEN. AT THIS TIME WILL CONTINUE TO MONITOR PATIENT.
[2021-03-12] MEDS ORDERED: METHADONE HCL 10 MG TABLET PO ONE (11:00)
[2021-03-12] MEDS: VANCOMYCIN 1.25 GM in IV D5W 250 ML IV SCH (17:26)
[2021-03-12] MEDS: ACETAMINOPHEN 325 MG TABLET PO PRN (17:32)
--- NOTE | 2021-03-12 18:39 | NUR ---
RN NOTE PATIENT IN BED SLEEPING EASILY AWAKEN. PATIENT ON ROOM AIR AT THIS TIME WITH NO SIGN OF RESPIRATORY DISTRESS WITH EVEN NON-LABORED BREATHING. ON OIL SCOUT. IV ACCESS INTACT AND PATENT CURRENTLY INFUSING 100ML/HR OF NS. PATIENT DENIES ANY PAIN AT THIS TIME. NOTED FLUID RESTRICTION. BLE WOUND DRESSING INTACT AND CHANGED. MET ALL OF PATIENTS NEEDS. SAFETY PRECAUTION IN PLACE WITH BED LOCKED, BED ALARM, BED IN THE LOWEST POSITION, AND CALL LIGHT WITHIN EASY REACH. WILL ENDORSE PLAN OF CARE TO UPCOMING RN.
[2021-03-12] MEDS: OLANZAPINE 10 MG TABLET PO SCH (21:36)
--- NOTE | 2021-03-12 22:14 | NUR ---
BOILERMAKER MECHANIC NOTE INFORMED DR HAMPTON THAT PT IS ON TELE MONITOR BUT UNABLE TO GET ANY RHYTHM, EVEN CHANGED ROOM, CHANGE 3X TELE BOX AND LEADS BUT NO LUCK. PT IN NO DISTRESS OR ANY PAIN. ORDERED STAT EKG. ORDER NOTED AND CARRIED OUT. WILL FOLLOW UP. Addendum: 03/12/21 at 2217 by DIETER TEAGUE RN PER IF STAT EKG IS NORMAL OK OFF TELE.
--- NOTE | 2021-03-12 22:41 | NUR ---
COKE WORKER NOTE INFORMED RESULT OF STAT EKG NSR TO MD HAMPTON. PER MD TEJADA FOR NO TELE MONITOR
[2021-03-13] VITALS (7 sets, daily range): BP systolic 84–94; BP diastolic 38–50
[2021-03-13] MEDS: IV NS 0.9% 1,000 ML IV PRN ×2 (00:33→12:00)
[2021-03-13 07:05] LABS: CALCIUM, SERUM 6.9 mg/dL (8.5-10.1)
--- NOTE | 2021-03-13 07:38 | NUR ---
RN NOTE NO SIGNIFICANT CHANGES DURING SHIFT. PATIENT AOX4, ABLE TO MAKE NEEDS KNOWN. BREATHING EVEN AND UNLABORED. ON ROOM AIR, NO EPISODE OF COUGHING,CONGESTION. SKIN WARM AND DRY TO TOUCH, AFEBRILE. NO COMPLAINTS OF DISCOMFORT DURING SHIFT. ALL NEEDS ATTENDED. ASSISTED WITH ADL'S. CALL LIGHT WITHIN REACH.
[2021-03-13 07:43] LABS: POTASSIUM 2.5 mmol/L (3.5-5.1)
--- NOTE | 2021-03-13 07:57 | NUR ---
RN OPENING NOTE Patient is A/O X 4, no respiratory distress, no SOB. Right upper arm midline with no s/sx of infiltration, NS @100cc/hr. Safety precautions implemented, bed locked in lowest position call light within reach.
[2021-03-13] MEDS: ALLOPURINOL 100 MG TABLET PO SCH ×2 (08:13→21:03)
[2021-03-13] MEDS: LEVOTHYROXINE SODIUM 50 MCG TABLET PO SCH (08:15)
--- NOTE | 2021-03-13 08:15 | NUR ---
NA 129 ,K 2.5 left message waiting for returning call back
[2021-03-13] MEDS: FERROUS SULFATE (325 MG) 325 MG/TAB TABLET PO SCH ×2 (08:16→16:55)
[2021-03-13] MEDS: MEROPENEM 1 G in IV NS 0.9% 100 ML IV SCH ×2 (08:17→21:17)
[2021-03-13] MEDS: HEPARIN SODIUM, PORCINE 5000 UNITS/1 ML VIAL SQ SCH ×2 (08:19→21:02)
[2021-03-13] MEDS: SODIUM BICARBONATE 650 MG TABLET PO SCH ×2 (08:21→16:55)
[2021-03-13] MEDS: SODIUM CHLORIDE 1000 MG TABLET PO SCH ×3 (08:22→16:55)
[2021-03-13] MEDS: MORPHINE SULFATE INJ 2 MG/ML DISP.SYRIN IV PRN ×2 (08:37→22:32)
[2021-03-13 08:48] LABS: BASOPHILS # (AUTO) 0.1 K/uL (0.0-0.2); BASOPHILS % (AUTO) 0.8 % (0.0-2.0); EOSINOPHILS % (AUTO) 2.6 % (0.0-6.0); LYMPHOCYTES # (AUTO) 0.7 K/uL (0.8-4.8); LYMPHOCYTES % (AUTO) 6.6 % (20.0-44.0); MEAN CORPUSCULAR HGB CONC 35 g/dl (31.0-36.0); MEAN CORPUSCULAR VOLUME 80 fL (80-96); MONOCYTES # (AUTO) 1.2 K/uL (0.1-1.30); MONOCYTES % (AUTO) 10.2 % (2.0-12.0); NEUTROPHILS % (AUTO) 79.8 % (43.0-81.0); PLATELET COUNT (AUTO) 415 K/uL (150-450); RED BLOOD CELL COUNT(AUTO) 2.46 MIL/uL (4.5-6.0); WHITE BLOOD COUNT (AUTO) 11.2 K/uL (4.3-11.0)
[2021-03-13 08:59] LABS: HEMATOCRIT 20 % (39-51); HEMOGLOBIN 6.8 g/dL (13.5-17.5)
[2021-03-13] MEDS ORDERED: POTASSIUM CL. PREMIX PERIPHER. 50 ML IV SCH (09:00)
[2021-03-13] MEDS ORDERED: POTASSIUM CHLORIDE 20 MEQ TAB.PRT.SR PO ONE (09:30)
--- NOTE | 2021-03-13 09:45 | NUR ---
WOUND CARE CONSULT: REVIEWED CHART, NURSING DOCUMENTATION AND PHOTOS WHICH INDICATE MULTIPLE WOUNDS, PRESENT ON ADMISSION. DR MTZ AND DR EISENBERG NOTIFIED OF SURGICAL AND DPM CONSULTS. RECOMMENDATIONS MADE FOR SKIN PROTECTION. DISCUSSED WITH NURSING STAFF. MD IN AGREEMENT WITH PLAN OF CARE.
[2021-03-13 10:59] LABS: LYMPHOCYTES % (MANUAL) 11 % (16-48); MONOCYTES % (MANUAL) 11 % (0-11.0); NEUTROPHILS % (MANUAL) 78 (42-76)
[2021-03-13] MEDS: METHADONE HCL 10 MG TABLET PO SCH (12:05)
[2021-03-13] MEDS: ACETAMINOPHEN 325 MG TABLET PO PRN (15:42)
--- NOTE | 2021-03-13 17:45 | NUR ---
RN NOTE Endorsed to Jovany Arenassurmiranda for continuation of care. Patient A/O X4, no respiratory distress, no SOB. 1 PRBC given with no adverse reaction noted, pre medicated accordingly, Wound care rendered as well.
--- NOTE | 2021-03-13 17:46 | NUR ---
Patient arrived to unit around 1745 via bed from [place], patient AO X 4, able to make needs known, can follow simple commands, no apparent distress noted, breathing even and unlabored. Patient's vital signs within normal limits, no complained of facial numbness or weakness, no extremity numbness or weakness at this time. Patient oriented with use of call lights, use of bed control, use of telephone and tv control, also introduces CLINICAL EDUCATOR and RN assigned for today, verbalized understanding and gratitude. All needs attended, kept clean and dry, call light left within reach, safety precautions in place, brakes locked, side rails up X 2, will monitor closely for any changes.
[2021-03-13] MEDS: VANCOMYCIN 1.25 GM in IV D5W 250 ML IV SCH (18:00)
--- NOTE | 2021-03-13 18:28 | NUR ---
RN CLOSING NOTES Patient lying in bed, AO X 4, can follow commands, able to make needs known, no apparent distress noted, no SOB, respirations even and unlabored, denies any pain or discomfort. Patient S/P blood transfusion today, no apparent distress noted, no adverse reactions noted at this time, remained afebrile, no rashes, no shortness of breath, no itching, skin warm to touch, no pallor or cyanosis noted. All needs attended, kept clean and dry, safety precautions in place, brakes locked, side rails up X 2, call light left within reach, will endorse to next shift for continuity of care.
--- NOTE | 2021-03-13 20:39 | NUR ---
IN BED ALERT AND ORIENTATED X3 BED ALARM ON FOR SAFETY VERBALIZES HIS NEEDS
[2021-03-13] MEDS: OLANZAPINE 10 MG TABLET PO SCH (21:16)
--- NOTE | 2021-03-14 05:02 | NUR ---
Bedridden uses the call light to alert he nurse he has needs verbalizes his needs. He is aware he his on 500 ml fluid restriction for 24 hrs midline right arm patent and flushes well ambien given for insomnia per patient requiest and effective medicated X1 with Morphine 2 mg for leg pain and effective using the urinal remains continent
[2021-03-14 06:45] LABS: BASOPHILS # (AUTO) 0.1 K/uL (0.0-0.2); BASOPHILS % (AUTO) 0.8 % (0.0-2.0); EOSINOPHILS % (AUTO) 3.7 % (0.0-6.0); HEMATOCRIT 21 % (39-51); HEMOGLOBIN 7.2 g/dL (13.5-17.5); LYMPHOCYTES # (AUTO) 0.9 K/uL (0.8-4.8); LYMPHOCYTES % (AUTO) 9.6 % (20.0-44.0); MEAN CORPUSCULAR HGB CONC 35 g/dl (31.0-36.0); MEAN CORPUSCULAR VOLUME 81 fL (80-96); MONOCYTES # (AUTO) 1.2 K/uL (0.1-1.30); MONOCYTES % (AUTO) 12.2 % (2.0-12.0); NEUTROPHILS # (AUTO) 7.1 K/uL (1.8-8.9); NEUTROPHILS % (AUTO) 73.7 % (43.0-81.0); PLATELET COUNT (AUTO) 410 K/uL (150-450); RED BLOOD CELL COUNT(AUTO) 2.58 MIL/uL (4.5-6.0); WHITE BLOOD COUNT (AUTO) 9.6 K/uL (4.3-11.0)
[2021-03-14 07:05] LABS: CALCIUM, SERUM 7.7 mg/dL (8.5-10.1); CREATININE 1.7 mg/dL (0.6-1.3); POTASSIUM 3.3 mmol/L (3.5-5.1)
[2021-03-14 08:00] VITALS: BP 98/57
[2021-03-14] MEDS ORDERED: VANCOMYCIN 0.75 GM in IV D5W 250 ML IV SCH (08:00)
[2021-03-14] MEDS ORDERED: THERAHONEY GEL 1.5 OZ TUBE TP SCH (09:00)
[2021-03-14] MEDS ORDERED: POTASSIUM CHLORIDE 10 MEQ TABLET.SA PO ONE (09:30)
[2021-03-14] MEDS: HEPARIN SODIUM, PORCINE 5000 UNITS/1 ML VIAL SQ SCH (09:37)
[2021-03-14] MEDS: LEVOTHYROXINE SODIUM 50 MCG TABLET PO SCH (09:38)
[2021-03-14] MEDS: SODIUM BICARBONATE 650 MG TABLET PO SCH (09:38)
[2021-03-14] MEDS: ALLOPURINOL 100 MG TABLET PO SCH (09:38)
[2021-03-14] MEDS: FERROUS SULFATE (325 MG) 325 MG/TAB TABLET PO SCH (09:39)
[2021-03-14] MEDS: METHADONE HCL 10 MG TABLET PO SCH (09:39)
[2021-03-14 10:04] LABS: BAND % (MANUAL) 5 % (0.0-5.0); EOSINOPHILS % (MANUAL) 4 % (0-4); LYMPHOCYTES % (MANUAL) 8 % (16-48); MONOCYTES % (MANUAL) 8 % (0-11.0); MYELOCYTES % 2 % (0-0); NEUTROPHILS % (MANUAL) 73 (42-76)
[2021-03-14] MEDS ORDERED: LEVO500T90 PO (10:28)
[2021-03-14] MEDS ORDERED: SULF1TAB48 PO (10:28)
[2021-03-14] MEDS ORDERED: POTASSIUM CHLORIDE 20 MEQ TAB.PRT.SR PO ONE (10:30)
--- NOTE | 2021-03-14 10:43 | NUR ---
DR. HAMPTON IN AND ORDERS GIVEN.JITENDRA IN TO SEE PT.
[2021-03-14 11:07] LABS: *SPE A/G RATIO 0.6 (0.7-1.7); *SPE ALPHA-1-GLOBULIN 0.4 g/dL (0.0-0.4); *SPE ALPHA-2-GLOBULIN 0.9 g/dL (0.4-1.0); *SPE BETA GLOBULIN 0.8 g/dL (0.7-1.3); *SPE M-SPIKE Not Observed g/dL (Not Observed)
[2021-03-14] MEDS: MEROPENEM 1 G in IV NS 0.9% 100 ML IV SCH (11:50)
--- NOTE | 2021-03-14 14:30 | NUR ---
REFUSED BLOOD TRANSFUSION,REFUSED DRESSING CHANGE TO THIGH AND LEGS.STATES HE JUST WANTS TO LEAVE.
--- NOTE | 2021-03-14 15:29 | NUR ---
DR. HAMPTON TEXTED REGARDING PT'S REFUSAL OF BLOOD.AMBULANCE DRIVER PARAMEDIC. REYNA INFORMED OF NEED FOR WALKER. STATES SHE WILL CONTACT [employer].
--- NOTE | 2021-03-14 16:00 | NUR ---
REFUSED DISCHARGE PHOTOS.MILIND MIDLINE REMOVED.DRESSING TO SITE.ALL DC PAPERS SIGNED INCLUDING BELONGING SHEET.MEDS DISPENSED TO HIM(HOME MED).FROM OUR PHARM.PT'S RX FAXED TO HIS PHARMACY.RN DID GIVE 2 REPLACEMENTS OF POTASSIUM.TAKEN TO LOBBY ACCOMPANIED BY RN. FOR TRANSPORT BY [facility].
== END 2021-03-14 16:15 | disposition home health service (06) | DRG 383 ==
LOC: ER 16:03 → TELE1 21:21 → TELE-TD 21:24 → TELE1 03-11 08:27 → MEDSG1 03-13 11:09 → MED 03-13 17:45
PROVIDERS: ADMIT Internal Medicine; ATTEND Internal Medicine
PROC: 05HB33Z Insertion of Infusion Device into Right Basilic Vein, Percutaneous Approach (ICD-10-PCS; principal; 2021-03-11)
PROC: 30233N1 Transfusion of Nonautologous Red Blood Cells into Peripheral Vein, Percutaneous Approach (ICD-10-PCS; 2021-03-13)
DX: L03.115 Cellulitis of right lower limb (principal); N17.0 Acute kidney failure with tubular necrosis; E87.1 Hypo-osmolality and hyponatremia; L97.419 Non-pressure chronic ulcer of right heel and midfoot with unspecified severity; I87.2 Venous insufficiency (chronic) (peripheral); M86.672 Other chronic osteomyelitis, left ankle and foot; D50.9 Iron deficiency anemia, unspecified; F11.10 Opioid abuse, uncomplicated; E87.5 Hyperkalemia; F17.210 Nicotine dependence, cigarettes, uncomplicated; L03.116 Cellulitis of left lower limb; N18.9 Chronic kidney disease, unspecified; Z20.822 Contact with and (suspected) exposure to COVID-19; Z79.899 Other long term (current) drug therapy; M10.9 Gout, unspecified; E87.6 Hypokalemia; Z79.890 Hormone replacement therapy; E03.9 Hypothyroidism, unspecified
CPT/HCPCS: 36415; 71045-TC; 73700-TC; 80048-TC; 80053-TC; 80076-TC; 80202-TC; 81001; 82550-TC; 82570-TC; 82962-TC; 83605-TC; 83735-TC; 83970; 84100-TC; 84155; 84155-TC; 84165; 84300-TC; 84484-TC; 85025-TC; 85730-TC; 86850-TC; 87040-TC; 87070-TC; 87081-TC; 87086-TC; 87186-TC; 93970-TC; A4217; A6253; A6403; C9803; G0378; J0692; J1644; J1815; J2185; J2270; J2405; J2543; J3370; J3480; J3490; J7030; J7060; P9016

== ENCOUNTER 2021-07-11 22:40 | Inpatient (IN) | payer MEDICAID ==
[~2021-07-11] VITALS: Ht 160 cm; Wt 82.6 kg
[~2021-07-11 22:40] MED LIST changes: -CIPR-262 PO; +LEVO500T90 PO; +LEVO50TA8 PO; +METH10TA2 PO; -ONDA4VIA52 IJ
[2021-07-12] VITALS (35 sets, daily range): BP systolic 81–120; BP diastolic 35–67
[2021-07-12] MEDS ORDERED: ONDANSETRON HCL 4 MG/5 ML SOLUTION PO ONE
--- NOTE | 2021-07-12 | NUR ---
pt came in c/o worsening of lower legs woundsn nausea, pt is a/o placed, on the monitor.
--- NOTE | 2021-07-12 00:25 | NUR ---
LAB AT BEDSIDE
[2021-07-12] MEDS ORDERED: ONDANSETRON 4 MG TAB.RAPDIS ONE (00:36)
[2021-07-12 00:40] LABS: BASOPHILS # (AUTO) 0.2 K/uL (0.0-0.2); EOSINOPHILS % (AUTO) 0.2 % (0.0-6.0); HEMATOCRIT 26 % (39-51); HEMOGLOBIN 9.1 g/dL (13.5-17.5); LYMPHOCYTES # (AUTO) 0.3 K/uL (0.8-4.8); LYMPHOCYTES % (AUTO) 1.4 % (20.0-44.0); MEAN CORPUSCULAR HGB CONC 35 g/dl (31.0-36.0); MEAN CORPUSCULAR VOLUME 75 fL (80-96); MONOCYTES # (AUTO) 0.4 K/uL (0.1-1.30); MONOCYTES % (AUTO) 2.2 % (2.0-12.0); NEUTROPHILS # (AUTO) 18.2 K/uL (1.8-8.9); NEUTROPHILS % (AUTO) 95.2 % (43.0-81.0); PLATELET COUNT (AUTO) 321 K/uL (150-450); RED BLOOD CELL COUNT(AUTO) 3.52 MIL/uL (4.5-6.0); WHITE BLOOD COUNT (AUTO) 19.1 K/uL (4.3-11.0)
[2021-07-12 00:55] LABS: ALBUMIN 2.7 g/dL (3.4-5.0); BILIRUBIN,DIRECT 0.2 mg/dL (0.0-0.2); BILIRUBIN,TOTAL 0.3 mg/dL (0.2-1.0); CALCIUM, SERUM 7.5 mg/dL (8.5-10.1); TOTAL PROTEIN, SERUM 8.5 g/dL (6.4-8.2)
[2021-07-12 01:23] LABS: CREATININE 9.6 mg/dL (0.6-1.3); POTASSIUM 6.5 mmol/L (3.5-5.1)
[2021-07-12] MEDS ORDERED: CALCIUM CHLORIDE 1,000 MG/10 ML DISP.SYRIN ONE (01:48)
[2021-07-12] MEDS ORDERED: DEXTROSE 50%-WATER 50 ML DISP.SYRIN ONE ×2 (01:48→06:30)
[2021-07-12] MEDS ORDERED: SODIUM POLYSTYRENE SULFONATE 15 G/60 ML BOTTLE ONE ×2 (01:48→07:45)
[2021-07-12] MEDS ORDERED: VANCOMYCIN 1 GM VIAL ONE (01:48)
[2021-07-12] MEDS ORDERED: INSULIN REGULAR, HUMAN 100 UNIT/ML 10 ML VIAL ONE (01:49)
[2021-07-12] MEDS ORDERED: INSULIN REGULAR, HUMAN 100 UNIT/ML 10 ML VIAL IV ONE (02:00)
[2021-07-12] MEDS ORDERED: VANCOMYCIN 1 GM in IV D5W 250 ML IV ONE (02:00)
[2021-07-12] MEDS ORDERED: DEXTROSE 50%-WATER 50 ML DISP.SYRIN IV ONE (02:00)
[2021-07-12] MEDS ORDERED: ALBUTEROL FS 2.5 MG/3 ML VIAL.NEB NEB ONE (02:00)
[2021-07-12] MEDS ORDERED: IV NS 0.9% 500 ML BAG IV ONE (02:00)
[2021-07-12] MEDS ORDERED: PIPERACILLIN /TAZOBACTAM 2.25 G in IV D5W 50 ML IV ONE (02:00)
[2021-07-12] MEDS ORDERED: CALCIUM CHLORIDE 1,000 MG/10 ML DISP.SYRIN IV ONE (02:00)
[2021-07-12] MEDS ORDERED: SODIUM POLYSTYRENE SULFONATE 15 G/60 ML BOTTLE PO ONE ×2 (02:00→05:30)
--- NOTE | 2021-07-12 02:00 | NUR ---
CLINICALS INFO GIVEN TO DUSTIN LILLY CM OVER THE PHONE
[2021-07-12] MEDS ORDERED: ALBUTEROL FS 2.5 MG/3 ML VIAL.NEB ONE (02:27)
[2021-07-12] MEDS ORDERED: PIPERACILLIN /TAZOBACTAM 2.25 G VIAL IV ONE (03:17)
[2021-07-12] MEDS ORDERED: IV NS 0.9% 1,000 ML IV ONE ×4 (04:30→10:30)
[2021-07-12] MEDS ORDERED: IV Sodium Chloride 3% 500 ML 500 ML IV PRN (05:30)
[2021-07-12] MEDS ORDERED: ACETAMINOPHEN 325 MG TABLET PO PRN (05:30)
--- NOTE | 2021-07-12 05:32 | NUR ---
PT REFUSED TO HAVE A SECOND IV LINE PLACED. RISK AND BENEFIT EXPLAINED
[2021-07-12 05:52] LABS: BASOPHILS % (AUTO) 0.3 % (0.0-2.0); EOSINOPHILS % (AUTO) 0.1 % (0.0-6.0); HEMATOCRIT 22 % (39-51); HEMOGLOBIN 7.7 g/dL (13.5-17.5); LYMPHOCYTES # (AUTO) 0.2 K/uL (0.8-4.8); LYMPHOCYTES % (AUTO) 1.1 % (20.0-44.0); MEAN CORPUSCULAR HGB CONC 35 g/dl (31.0-36.0); MEAN CORPUSCULAR VOLUME 75 fL (80-96); MONOCYTES # (AUTO) 0.3 K/uL (0.1-1.30); NEUTROPHILS # (AUTO) 14.9 K/uL (1.8-8.9); NEUTROPHILS % (AUTO) 96.5 % (43.0-81.0); PLATELET COUNT (AUTO) 273 K/uL (150-450); RED BLOOD CELL COUNT(AUTO) 2.94 MIL/uL (4.5-6.0); WHITE BLOOD COUNT (AUTO) 15.4 K/uL (4.3-11.0)
--- NOTE | 2021-07-12 06:01 | NUR ---
PT REFUSED F/C TO BE PLACED, RISK AND BENEFIT EXPLAINED X 2.
[2021-07-12 06:05] LABS: POTASSIUM 5.4 mmol/L (3.5-5.1)
[2021-07-12 06:30] LABS: CREATININE 8.9 mg/dL (0.6-1.3)
--- NOTE | 2021-07-12 06:38 | NUR ---
ACCU CHECK BS NOTED AT 89
--- NOTE | 2021-07-12 06:47 | NUR ---
REC'D CRITICAL VALUE FOR Na, Cl, BS, BUN AND Cr. RECHECKED FINGER STICK BLOOD SUGAR:89. RESULTS RELAYED TO DR HAMPTON WITH AN ORDER FOR NS 1 LITER BOLUS AND BMP IN 2 HOURS, NOTED AND CARRIED OUT
--- NOTE | 2021-07-12 06:50 | NUR ---
ICU ROOM ASSIGNMENT: [id number]
--- NOTE | 2021-07-12 06:57 | NUR ---
US TECH AT BED SIDE FOR RENAL US
[2021-07-12] MEDS ORDERED: HYDROCODONE/APAP 5/325MG TABLET PO PRN (07:00)
[2021-07-12 07:11] LABS: ALCOHOL, BLOOD < 3 mg/dL (0-0)
[2021-07-12 07:39] LABS: IRON, SERUM 49 ug/dl (50-175); TOTAL IRON BINDING CAPACITY 259 ug/dl (250-450)
--- NOTE | 2021-07-12 08:00 | NUR ---
REPORT GIVEN TO KHUSHI MCNEAL FOR [facility]
--- NOTE | 2021-07-12 08:10 | NUR ---
RN NOTES RECEIVED PT FROM ER IN ROOM 252, A/Ox4, ON RA , RESPIRATION EVEN AND UNLABORED, ON TELE SR HR IN 80'S , PT REFUSED TO HAVE DECKER , R AC IV SITE CLEAN, AND DRY AND INTACT . PT REFUSED TO HAVE SECOND IV SITE , STATED WANTS PICC LINE AND HE IS HARD STICK . ESTEVAN LOWER EXTREMITIES WOUND NOTED, PICTURE TAKEN AND PLACED IN THE CHART, WOUND CONSULT ORDERED, PT'S SBP IS IN 80'S , AND PT STATED THAT IS NORMAL FOR HIM , DR HAMPTON NOTIFIED , SR UP x3, CALL LIGHT WITHIN EASY REACH, BED LOCKED AND IN LOWEST , CONTINUE TO MONITOR.
--- NOTE | 2021-07-12 08:17 | NUR ---
TRANSFERRED TO ICU IN STABLE CONDITION
[2021-07-12] MEDS ORDERED: FERROUS SULFATE (325 MG) 325 MG/TAB TABLET PO SCH (09:00)
[2021-07-12] MEDS ORDERED: SODIUM CHLORIDE 1000 MG TABLET PO SCH (09:00)
[2021-07-12] MEDS: SODIUM BICARBONATE 650 MG TABLET PO SCH ×2 (09:24→16:26)
[2021-07-12] MEDS: LEVOTHYROXINE SODIUM 50 MCG TABLET PO SCH (09:24)
[2021-07-12] MEDS: ALLOPURINOL 100 MG TABLET PO SCH ×2 (09:25→21:09)
[2021-07-12] MEDS: METHADONE HCL 10 MG TABLET PO SCH (09:34)
--- NOTE | 2021-07-12 10:00 | NUR ---
RN NOTES SBP IN MID 80'S PT IS A/O x4, NO DISTRESS NOTED, DR HAMPTON NOTIFIED, CONTINUE TO MONITOR .
--- NOTE | 2021-07-12 10:49 | NUR ---
WOUND CARE CONSULT: PT REFUSED SKIN ASSESSMENT. PER ADMISSION PHOTOS, THERE ARE MULTIPLE WOUNDS, PRESENT ON ADMISSION. DR MTZ AND DR EISENBERG NOTIFIED OF SURGICAL AND DPM CONSULT REQUESTS. IN AGREEMENT WITH PLAN OF CARE. DISCUSSED SKIN PROTECTION WITH NURSING STAFF. Wally Wilks IN AGREEMENT WITH PLAN OF CARE.
[2021-07-12] MEDS ORDERED: Z GUARD REMEDY 4 OZ OINT TP PRN (11:00)
[2021-07-12] MEDS ORDERED: PIPERACILLIN /TAZOBACTAM 2.25 G in IV D5W 50 ML IV SCH (13:00)
[2021-07-12] MEDS: PIPERACILLIN /TAZOBACTAM 2.25 G in IV D5W 50 ML IV SCH ×3 (13:14→23:32)
[2021-07-12] MEDS: SODIUM CHLORIDE 1000 MG TABLET PO SCH ×2 (13:14→16:26)
[2021-07-12] MEDS: IV D5/ 0.9% NACL 1,000 ML IV PRN ×2 (14:02→23:00)
[2021-07-12] MEDS: SOD FERRIC GLUC 125 MG in IV NS 0.9% 100 ML IV SCH (14:58)
[2021-07-12] MEDS ORDERED: EPOETIN ALFA-EPBX 20,000 UNIT/ML VIAL IV ONE (15:00)
[2021-07-12 15:24] LABS: CALCIUM, SERUM 6.8 mg/dL (8.5-10.1); POTASSIUM 4.2 mmol/L (3.5-5.1)
[2021-07-12 15:27] LABS: CREATININE 7.6 mg/dL (0.6-1.3)
--- NOTE | 2021-07-12 18:00 | NUR ---
RN NOTES NO SIGNIFICANT CHANGES NOTED ON THIS SHIFT, PT EATING DINNER , ON ON TELE SR HR IN 80'S , DRESSING TO ESTEVAN. LOWER EXTREMITIES INTACT, D5 NS AT 75CC/HR RUNNING VIA R UPPER ARM PICC LINE, PT ABLE TO USE URINAL , SR UP x3, CALL LIGHT WITHIN EASY REACH, BED LOCKED AND IN LOWEST POSITION, WILL ENDORSE TO BALANCE WHEEL MOTION INSPECTOR NURSE FOR CONTINUITY OF CARE .
--- NOTE | 2021-07-12 19:27 | NUR ---
RN NOTE RECEIVED PATIENT IN BED, AWAKE, AND VERBALLY RESPONSIVE. ABLE TO MAKE NEEDS KNOWN. BREATHING EVEN AND UNLABORED. TOLERATING ON ROOM AIR AT THIS TIME, DENIES FEELING SHORTNESS OF BREATH. DENIES CHEST PAIN. ON TELE MONITORING, SINUS RHYTHM AT 100 BPM. SKIN WARM AND DRY. NOTED WITH RIGHT UPPER ARM PICC LINE, RUNNING D5 NS AT 75 CC/HR. NO BLEEDING/NO LEAKING, DENIES PAIN AT SITE. NOTED WITH LOWER EXTREMITY WOUNDS, WRAPPED IN KERLIX, NO BLEEDING NOTED. DENIES PAIN. PROVIDED WITH BEDSIDE URINAL. BED LOW, IN LOCKED POSITION, CALL LIGHT WITHIN REACH.
[2021-07-12] MEDS: OLANZAPINE 10 MG TABLET PO SCH (21:09)
[2021-07-13] VITALS (20 sets, daily range): BP systolic 75–105; BP diastolic 39–59
--- NOTE | 2021-07-13 00:29 | NUR ---
RN NOTE PATIENT WAS COMPLAINING OF "BLADDER PAIN". PATIENT ALSO WITH VERY MINIMAL URINE OUTPUT. BLADDER SCANNER DONE WITH RESULT OF >965 ML. CONTACTED MEMO OLIVARES, PER TERRELL OLIVARES TO INSERT DECKER. EXPLAINED TO PATIENT THE PURPOSE AND THE NEED FOR DECKER CATHETER. PATIENT AGREED. INSERTED INDWELLING DECKER CATHETER 14Fr. DRAINING YELLOW URINE, NO HEMATURIA NOTED. STERILE PROCEDURE OBSERVED. WILL CONTINUE TO MONITOR, CALL LIGHT WITHIN REACH.
--- NOTE | 2021-07-13 03:29 | NUR ---
RN NOTE PATIENT REFUSING WOUND CARE AT THIS TIME. OFFERED TO CHANGE DRESSING ON BILATERAL LOWER EXTREMITY AND RIGHT THIGH DUE TO MILD SOILING. PATIENT REFUSED DUE TO WANTING TO SLEEP. WILL OFFER AGAIN.
--- NOTE | 2021-07-13 04:32 | NUR ---
RN NOTE OFFERED PATIENT A BED BATH, REFUSED AT THIS TIME. STATES HE IS "OK RIGHT NOW". DENIES HAVING A BM. PATIENT SLEEPING, AROUSABLE TO NAME AND TOUCH.
[2021-07-13 04:54] LABS: BASOPHILS % (AUTO) 0.2 % (0.0-2.0); LYMPHOCYTES # (AUTO) 0.1 K/uL (0.8-4.8); LYMPHOCYTES % (AUTO) 0.9 % (20.0-44.0); MEAN CORPUSCULAR HGB CONC 35 g/dl (31.0-36.0); MEAN CORPUSCULAR VOLUME 75 fL (80-96); MONOCYTES # (AUTO) 0.4 K/uL (0.1-1.30); MONOCYTES % (AUTO) 3.5 % (2.0-12.0); NEUTROPHILS # (AUTO) 10.6 K/uL (1.8-8.9); NEUTROPHILS % (AUTO) 95.4 % (43.0-81.0); PLATELET COUNT (AUTO) 226 K/uL (150-450); RED BLOOD CELL COUNT(AUTO) 2.56 MIL/uL (4.5-6.0); WHITE BLOOD COUNT (AUTO) 11.1 K/uL (4.3-11.0)
[2021-07-13] MEDS: PIPERACILLIN /TAZOBACTAM 2.25 G in IV D5W 50 ML IV SCH ×4 (05:01→23:34)
[2021-07-13 05:07] LABS: CREATININE 6.8 mg/dL (0.6-1.3); POTASSIUM 3.9 mmol/L (3.5-5.1)
[2021-07-13 05:23] LABS: THYROID STIMULATING HORMONE 4.519 uIU/mL (0.358-3.74)
[2021-07-13 05:40] LABS: CALCIUM, SERUM 5.9 mg/dL (8.5-10.1)
[2021-07-13 06:05] LABS: HEMOGLOBIN 6.7 g/dL (13.5-17.5)
[2021-07-13 06:06] LABS: HEMATOCRIT 19 % (39-51)
--- NOTE | 2021-07-13 06:35 | NUR ---
RN NOTE RECEIVED CALL FROM LAB, HEMOGLOBIN OF 6.7 AND HEMATOCRIT 19. JEREMY OLIVARES, MEMO, PER MD ORDER, TRANSFUSE 1 UNIT PRBC. NO BLEEDING NOTED AT THIS TIME. EXPLAINED TO PATIENT HIS RESULT AND THE NEED FOR BLOOD TRANSFUSION, PATIENT AGREED. BLOOD TRANSFUSION CONSENT SIGNED AND FILED IN PATIENTS CHART. ORDER NOTED AND CARRIED OUT.
[2021-07-13] MEDS: IV D5/ 0.9% NACL 1,000 ML IV PRN (06:59)
[2021-07-13] MEDS: METHADONE HCL 10 MG TABLET PO SCH (10:11)
[2021-07-13] MEDS: SODIUM CHLORIDE 1000 MG TABLET PO SCH ×3 (10:11→17:08)
[2021-07-13] MEDS: SODIUM BICARBONATE 650 MG TABLET PO SCH ×2 (10:11→17:08)
[2021-07-13] MEDS: ALLOPURINOL 100 MG TABLET PO SCH ×2 (10:11→21:31)
[2021-07-13] MEDS: LEVOTHYROXINE SODIUM 50 MCG TABLET PO SCH (10:11)
[2021-07-13] MEDS: DAKINS QUARTER STRENGTH (0.125%) 480 ML BOTTLE TOP SCH ×2 (10:12→16:18)
[2021-07-13] MEDS: MIDODRINE HCL (5MG) 5 MG TABLET PO SCH ×3 (11:39→17:08)
[2021-07-13] MEDS: HEPARIN SODIUM, PORCINE 5000 UNITS/1 ML VIAL SQ SCH ×2 (11:40→21:00)
--- NOTE | 2021-07-13 14:42 | NUR ---
PT READY FOR TRANSFER TO ROOM 307-2. PT ALERT OX3, TAKES PILLS WHILE WITH WATER. 1 UNIT PRBCS INFUSED PER MD ORDERS. PT REFUSES TO HAVE DRESSING CHANGES DONE, STATES THAT WOUND PA WILL BE HERE IN THE AFTERNOON TO CHANGE THE DRESSINGS. JITENDRA CAMPO NOTIFIED. PT CHECKED ON HOURLY AND PRN BY NURSING STAFF.
--- NOTE | 2021-07-13 15:07 | NUR ---
PT TRANSFERRED TO ROOM 307-2. REPORT GIVEN TO AXEL, UPDATES AT BEDSIDE. PT REFUSED DRESSING CHANGES, JITENDRA CAMPO CHARTED REFUSAL OF DEBRIDEMENT.
--- NOTE | 2021-07-13 15:10 | NUR ---
RN NOTE SUMMARY PATIENT WAS TRANSFERRED TO 307-2 VIA BED. PT IS A/O X3. ABLE TO MAKE NEEDS KNOWN. MULTIPLE WOUNDS WAS NOTED AND DOESN'T WANT HIS DRESSINGS TO BE CHANGED. UPON CLEANING UP THE PATIENT I FOUND A SUSPICIOUS PILLS/SUBSTANCE ON HIS BED. WHEN ASKED ABOUT IT, PT BECAME DEFENSIVE. KAMILA, CHARGE NURSE, IS MADE AWARE. WHICH SHE ALSO INFORMED THE BOWLING PIN REFINISHER AND SECURITY. "MEDICATIONS" WAS THROWN AWAY ON A PROPER BIN AND WAS WITNESSED BY THE SECURITY. PT IS ON ROOM AIR, DENIES SOB. IN NO APPARENT DISTRESS. IV ACCESS ON MILIND PICC LINE, D5NS RUNNING AT 100 ML/HR, INTACT AND PATENT. DECKER CATHETER IN PLACE, DRAINING YELLOW URINE. SAFETY MEASURES MAINTAINED. BED IN LOWEST POSITION, BRAKES LOCKED. SIDE RAILS UP X2. CALL LIGHT WITHIN REACH. WILL CONTINUE PLAN OF CARE.
[2021-07-13] MEDS: SOD FERRIC GLUC 125 MG in IV NS 0.9% 100 ML IV SCH (16:18)
--- NOTE | 2021-07-13 18:31 | NUR ---
RN NOTE A VISITOR CAME TO SEE THE PATIENT. MARIELENA GIBBS, OVERHEARD THE PATIENT SAYING TO THE VISITOR "DID YOU BRING ME SOMETHING, 'CAUSE THEY TOOK AWAY MY STUFF." INFORMED CHARGE NURSE AND ACCESS RN. EVERY TIME THAT THE PATIENT HAS A VISITOR, SECURITY MUST ALWAYS COME UP WITH THEM AND LIMITED FOR 10 MIN VISIT ONLY.
--- NOTE | 2021-07-13 19:53 | NUR ---
MS RN OPENING NOTE RECEIVED PATIENT IN BED. A/OX4. NO S/S OF APPARENT DISTRESS ON ROOM AIR. NO C/O PAIN AT THIS TIME. BILATERAL LOWER EXTREMITIES WITH DRESSINGS -- PATIENT REFUSES TO OPEN DRESSINGS. R. PICC RUNNING D5 NS @100 CC/HR. DECKER CATHETER DRAINING YELLOW URINE. SAFETY IN PLACE. WILL CONTINUE WITH PATIENT PLAN OF CARE.
--- NOTE | 2021-07-13 21:50 | NUR ---
MS RN NOTE PATIENT SCHEDULED 2100 HEPARIN DOSE HELD FOR TONIGHT ONLY PER MD ORDER.
[2021-07-13] MEDS: OLANZAPINE 10 MG TABLET PO SCH (22:04)
[2021-07-14] MEDS ORDERED: VANCOMYCIN HCL 0.75 GM in IV D5W 250 ML IV SCH (02:00)
[2021-07-14] MEDS: ZOLPIDEM TARTRATE 5 MG TABLET PO PRN (02:06)
[2021-07-14] MEDS: IV D5/ 0.9% NACL 1,000 ML IV PRN (05:04)
[2021-07-14] MEDS: PIPERACILLIN /TAZOBACTAM 2.25 G in IV D5W 50 ML IV SCH ×3 (05:37→17:04)
--- NOTE | 2021-07-14 06:44 | NUR ---
MS RN CLOSING PATIENT IN BED WITH EYES CLOSED, EASY TO AROUSE. A/OX4. NO S/S OF APPARENT DISTRESS ON ROOM AIR. DENIES PAIN AT THIS TIME. ALL NEEDS ATTENDED. ALL SCHEDULED MEDICATIONS ADMINISTERED. WOUND TREATMENT DONE. IV D5NS RUNNING @100CC/HR.. SAFETY KEPT IN PLACE THE WHOLE SHIFT. JERONIMO WITH AN OUTPUT OF 1,200. WILL ENDORSE TO MORNING SHIFT RN FOR CONTINUITY OF CARE.
[2021-07-14 06:51] LABS: EOSINOPHILS % (AUTO) 0.6 % (0.0-6.0); HEMATOCRIT 25 % (39-51); HEMOGLOBIN 8.6 g/dL (13.5-17.5); LYMPHOCYTES # (AUTO) 0.3 K/uL (0.8-4.8); LYMPHOCYTES % (AUTO) 3.1 % (20.0-44.0); MEAN CORPUSCULAR HGB CONC 34 g/dl (31.0-36.0); MEAN CORPUSCULAR VOLUME 77 fL (80-96); MONOCYTES % (AUTO) 9.9 % (2.0-12.0); NEUTROPHILS # (AUTO) 8.6 K/uL (1.8-8.9); NEUTROPHILS % (AUTO) 86.4 % (43.0-81.0); PLATELET COUNT (AUTO) 213 K/uL (150-450); RED BLOOD CELL COUNT(AUTO) 3.27 MIL/uL (4.5-6.0); WHITE BLOOD COUNT (AUTO) 9.9 K/uL (4.3-11.0)
--- NOTE | 2021-07-14 07:21 | NUR ---
RN OPENING NOTE- PT PATIENT IN BED. ASLEEP THOUGH EASILY AWAKENED. A/OX4. NO S/S OF APPARENT DISTRESS. PT ON ROOM AIR. NO C/O PAIN AT THIS TIME. BILATERAL LOWER EXTREMITIES WITH DRESSINGS. MILIND PICC RUNNING IVF- D5 NS @100 CC/HR. DECKER CATHETER DRAINING YELLOW URINE. BED LOCKED, CALL LIGHT IN REACH. WILL CONTINUE WITH PATIENT PLAN OF CARE.
[2021-07-14 07:38] LABS: CREATININE 5.4 mg/dL (0.6-1.3); POTASSIUM 3.7 mmol/L (3.5-5.1)
[2021-07-14 07:49] LABS: CALCIUM, SERUM 6.3 mg/dL (8.5-10.1)
[2021-07-14] MEDS: LEVOTHYROXINE SODIUM 50 MCG TABLET PO SCH (08:08)
[2021-07-14] MEDS: SODIUM BICARBONATE 650 MG TABLET PO SCH ×2 (08:08→16:44)
[2021-07-14] MEDS: SODIUM CHLORIDE 1000 MG TABLET PO SCH ×3 (08:09→16:44)
[2021-07-14] MEDS: HEPARIN SODIUM, PORCINE 5000 UNITS/1 ML VIAL SQ SCH ×2 (08:09→21:12)
[2021-07-14] MEDS: ALLOPURINOL 100 MG TABLET PO SCH ×2 (08:09→21:08)
[2021-07-14] MEDS: METHADONE HCL 10 MG TABLET PO SCH (08:10)
[2021-07-14] MEDS: MIDODRINE HCL (5MG) 5 MG TABLET PO SCH ×3 (08:12→16:44)
[2021-07-14] MEDS: DAKINS QUARTER STRENGTH (0.125%) 480 ML BOTTLE TOP SCH ×2 (08:22)
[2021-07-14 08:33] VITALS: BP 93/46
[2021-07-14] MEDS: Sodium Bicarbonate 50 MEQ in IV D5/0.45 NACL 1,000 ML IV SCH ×2 (11:07→21:08)
[2021-07-14] MEDS: SOD FERRIC GLUC 125 MG in IV NS 0.9% 100 ML IV SCH (15:44)
[2021-07-14 16:10] VITALS: BP 95/57
--- NOTE | 2021-07-14 18:37 | NUR ---
RN CLOSING NOTE- PT PATIENT IN BED. A/OX4. NO S/S OF APPARENT DISTRESS. PT ON ROOM AIR. NO C/O PAIN AT THIS TIME. BILATERAL LOWER EXTREMITIES WITH DRESSINGS. MILIND PICC RUNNING IVF- D5 NS @100 CC/HR. DECKER CATHETER DRAINING YELLOW URINE. 900 CC OUTPUT. BED LOCKED, CALL LIGHT IN REACH. WILL CONTINUE WITH PATIENT PLAN OF CARE.
--- NOTE | 2021-07-14 19:35 | NUR ---
MS RN OPENING NOTE RECEIVED PATIENT IN BED. A/OX4. NO S/S OF APPARENT DISTRESS ON ROOM AIR. NO C/O PAIN AT THIS TIME. BILATERAL LOWER EXTREMITIES WITH DRESSINGS. R.UA PICC RUNNING D5 NS @100 CC/HR. DECKER CATHETER DRAINING YELLOW URINE. SAFETY IN PLACE. WILL CONTINUE WITH PATIENT PLAN OF CARE.
[2021-07-14 20:00] VITALS: BP 93/50
[2021-07-14] MEDS: OLANZAPINE 10 MG TABLET PO SCH (21:13)
[2021-07-15] MEDS: PIPERACILLIN /TAZOBACTAM 2.25 G in IV D5W 50 ML IV SCH ×5 (00:03→23:07)
--- NOTE | 2021-07-15 07:20 | NUR ---
MS RN OPENING NOTES PATIENT ON BED ASLEEP. PATIENT RESPONSIVE TO CALL. PATIENT ALERT AND ORIENTED X 4. PATIENT IS ON ROOM AIR TOLERATING WELL, WITH NO SIGNS OF DISTRESS. PATIENT WITH RIGHT UPPER ARM MIDLINE WITH IVF OF D5 1/2 NS WITH 50MEQ SODIUM BICARB RUNNING AT 100 ML/HR, INFUSING WELL. PATIENT WITH DECKER CATHETER TO URINE BAG WITH LIGHT YELLOW URINE. SAFETY MEASURES IN PLACED. CALL LIGHT WITHIN REACH. BED ON LOWEST LOCKED POSITION, SIDE RAILS UP X2. WILL CONTINUE TO MONITOR PATIENT.
--- NOTE | 2021-07-15 07:22 | NUR ---
MS RN CLOSING REPORT GIVEN TO TOM REID CONTINUITY OF CARE.
[2021-07-15] MEDS: Sodium Bicarbonate 50 MEQ in IV D5/0.45 NACL 1,000 ML IV SCH ×2 (07:27→18:45)
[2021-07-15 07:40] LABS: BASOPHILS % (AUTO) 0.2 % (0.0-2.0); EOSINOPHILS % (AUTO) 0.9 % (0.0-6.0); HEMATOCRIT 23 % (39-51); HEMOGLOBIN 7.9 g/dL (13.5-17.5); LYMPHOCYTES # (AUTO) 0.4 K/uL (0.8-4.8); LYMPHOCYTES % (AUTO) 3.9 % (20.0-44.0); MEAN CORPUSCULAR HGB CONC 35 g/dl (31.0-36.0); MEAN CORPUSCULAR VOLUME 76 fL (80-96); MONOCYTES # (AUTO) 0.6 K/uL (0.1-1.30); MONOCYTES % (AUTO) 6.4 % (2.0-12.0); NEUTROPHILS # (AUTO) 8.6 K/uL (1.8-8.9); NEUTROPHILS % (AUTO) 88.6 % (43.0-81.0); PLATELET COUNT (AUTO) 198 K/uL (150-450); RED BLOOD CELL COUNT(AUTO) 3.01 MIL/uL (4.5-6.0); WHITE BLOOD COUNT (AUTO) 9.7 K/uL (4.3-11.0)
[2021-07-15 08:00] VITALS: BP 100/50
[2021-07-15 08:14] LABS: CALCIUM, SERUM 6.6 mg/dL (8.5-10.1); CREATININE 4.5 mg/dL (0.6-1.3)
[2021-07-15 08:33] LABS: POTASSIUM 2.7 mmol/L (3.5-5.1)
[2021-07-15] MEDS: ALLOPURINOL 100 MG TABLET PO SCH ×2 (09:27→21:29)
[2021-07-15] MEDS: SODIUM CHLORIDE 1000 MG TABLET PO SCH ×3 (09:27→16:34)
[2021-07-15] MEDS: MIDODRINE HCL (5MG) 5 MG TABLET PO SCH ×3 (09:28→16:34)
[2021-07-15] MEDS: METHADONE HCL 10 MG TABLET PO SCH (09:28)
[2021-07-15] MEDS: LEVOTHYROXINE SODIUM 50 MCG TABLET PO SCH (09:28)
[2021-07-15] MEDS: SODIUM BICARBONATE 650 MG TABLET PO SCH ×2 (09:28→16:33)
[2021-07-15] MEDS: DAKINS QUARTER STRENGTH (0.125%) 480 ML BOTTLE TOP SCH ×2 (09:31→09:32)
[2021-07-15] MEDS: HEPARIN SODIUM, PORCINE 5000 UNITS/1 ML VIAL SQ SCH ×2 (09:37→21:31)
[2021-07-15] MEDS ORDERED: POTASSIUM CHLORIDE 20 MEQ TAB.PRT.SR PO ONE (11:30)
[2021-07-15] MEDS ORDERED: VANCOMYCIN HCL 0.75 GM in IV D5W 250 ML IV SCH (15:00)
[2021-07-15 16:00] VITALS: BP 106/58
[2021-07-15] MEDS: SOD FERRIC GLUC 125 MG in IV NS 0.9% 100 ML IV SCH (16:32)
[2021-07-15] MEDS: VANCOMYCIN HCL 0.75 GM in IV D5W 250 ML IV SCH (17:23)
--- NOTE | 2021-07-15 18:49 | NUR ---
MS RN CLOSING NOTES PATIENT ON BED ASLEEP. PATIENT RESPONSIVE TO CALL. PATIENT ALERT AND ORIENTED X 4. PATIENT IS ON ROOM AIR TOLERATING WELL, WITH NO SIGNS OF DISTRESS. PATIENT WITH RIGHT UPPER ARM MIDLINE WITH IVF OF D5 1/2 NS WITH 50MEQ SODIUM BICARB RUNNING AT 100 ML/HR, INFUSING WELL. PATIENT WITH DECKER CATHETER TO URINE BAG WITH LIGHT YELLOW URINE. SAFETY MEASURES IN PLACED. CALL LIGHT WITHIN REACH. BED ON LOWEST LOCKED POSITION, SIDE RAILS UP X2. WILL ENDORSE TO NEXT SHIFT FOR CONTINUITY OF CARE.
--- NOTE | 2021-07-15 19:20 | NUR ---
MS RN OPENING NOTES RECEIVED PATIENT IN BED AWAKE, ALERT AND ORIENTED X4. NO S/SX OF ACUTE RESPIRATORY DISTRESS NOTED. PATIENT IS ON ROOM AIR TOLERATING WELL. IV ACCESS ON RIGHT UPPER ARM PICC LINE WITH IVF OF D5 1/2 NS WITH 50MEQ SODIUM BICARB RUNNING @ 100ML/HR, INFUSING WELL. PATIENT WITH DECKER CATHETER TO URINE BAG WITH LIGHT YELLOW URINE. SAFETY MEASURES IN PLACED. CALL LIGHT WITHIN REACH. BED ON LOWEST LOCKED POSITION, SIDE RAILS UP X2. WILL CONTINUE TO MONITOR PATIENT THROUGHOUT THE SHIFT.
--- NOTE | 2021-07-15 19:33 | NUR ---
MS RN NOTE ADJUSTED IV FLUID RATE ORDERED. REFUSED WOUND CARE.
[2021-07-15 20:00] VITALS: BP 113/63
[2021-07-15] MEDS: OLANZAPINE 10 MG TABLET PO SCH (21:31)
[2021-07-15] MEDS: ZOLPIDEM TARTRATE 5 MG TABLET PO PRN (23:08)
[2021-07-16] MEDS: Sodium Bicarbonate 50 MEQ in IV D5/0.45 NACL 1,000 ML IV SCH (03:20)
[2021-07-16] MEDS: PIPERACILLIN /TAZOBACTAM 2.25 G in IV D5W 50 ML IV SCH ×3 (05:07→18:17)
--- NOTE | 2021-07-16 06:50 | NUR ---
MS RN CLOSING NOTES RECEIVED PATIENT IN BED AWAKE, ALERT AND ORIENTED X4. NO S/SX OF ACUTE RESPIRATORY DISTRESS NOTED. PATIENT IS ON ROOM AIR TOLERATING WELL. IV ACCESS ON RIGHT UPPER ARM PICC LINE WITH IVF OF D5 1/2 NS WITH 50MEQ SODIUM BICARB RUNNING @ 50ML/HR, INFUSING WELL. PATIENT WITH DECKER CATHETER TO URINE BAG WITH LIGHT YELLOW URINE. SAFETY MEASURES IN PLACED. CALL LIGHT WITHIN REACH. BED ON LOWEST LOCKED POSITION, SIDE RAILS UP X2. WILL ENDORSE TO ONCOMING SHIFT.
[2021-07-16 06:55] LABS: BILIRUBIN,TOTAL 0.4 mg/dL (0.2-1.0); CALCIUM, SERUM 6.7 mg/dL (8.5-10.1); CREATININE 3.9 mg/dL (0.6-1.3); MAGNESIUM 1.3 mg/dL (1.8-2.4); TOTAL PROTEIN, SERUM 5.6 g/dL (6.4-8.2)
[2021-07-16 07:01] LABS: BASOPHILS % (AUTO) 0.1 % (0.0-2.0); EOSINOPHILS % (AUTO) 0.6 % (0.0-6.0); HEMATOCRIT 24 % (39-51); LYMPHOCYTES # (AUTO) 0.4 K/uL (0.8-4.8); LYMPHOCYTES % (AUTO) 3.9 % (20.0-44.0); MEAN CORPUSCULAR HGB CONC 34 g/dl (31.0-36.0); MEAN CORPUSCULAR VOLUME 77 fL (80-96); MONOCYTES # (AUTO) 0.7 K/uL (0.1-1.30); NEUTROPHILS # (AUTO) 9.9 K/uL (1.8-8.9); NEUTROPHILS % (AUTO) 89.4 % (43.0-81.0); PLATELET COUNT (AUTO) 222 K/uL (150-450); RED BLOOD CELL COUNT(AUTO) 3.07 MIL/uL (4.5-6.0)
--- NOTE | 2021-07-16 07:16 | NUR ---
MS RN OPENING NOTES PATIENT ON BED ASLEEP. PATIENT RESPONSIVE TO CALL. PATIENT ALERT AND ORIENTED X 4. PATIENT IS ON ROOM AIR TOLERATING WELL, WITH NO SIGNS OF DISTRESS. PATIENT WITH RIGHT UPPER ARM MIDLINE WITH IVF OF D5 1/2 NS WITH 50MEQ SODIUM BICARB RUNNING AT 50 ML/HR, INFUSING WELL. PATIENT WITH DECKER CATHETER TO URINE BAG WITH LIGHT YELLOW URINE. SAFETY MEASURES IN PLACED. CALL LIGHT WITHIN REACH. BED ON LOWEST LOCKED POSITION, SIDE RAILS UP X2. WILL CONTINUE TO MONITOR PATIENT.
[2021-07-16 07:21] LABS: POTASSIUM 2.7 mmol/L (3.5-5.1)
[2021-07-16 07:22] LABS: ALBUMIN 1.4 g/dL (3.4-5.0)
[2021-07-16] MEDS ORDERED: SULF1TAB48 PO (09:01)
[2021-07-16] MEDS ORDERED: LEVO250S3 PO (09:03)
[2021-07-16] MEDS: METHADONE HCL 10 MG TABLET PO SCH (09:17)
[2021-07-16] MEDS: LEVOTHYROXINE SODIUM 50 MCG TABLET PO SCH (09:17)
[2021-07-16] MEDS: SODIUM BICARBONATE 650 MG TABLET PO SCH ×2 (09:17→17:19)
[2021-07-16] MEDS: SODIUM CHLORIDE 1000 MG TABLET PO SCH ×3 (09:18→17:19)
[2021-07-16] MEDS: HEPARIN SODIUM, PORCINE 5000 UNITS/1 ML VIAL SQ SCH ×2 (09:20→21:00)
[2021-07-16] MEDS: ALLOPURINOL 100 MG TABLET PO SCH ×2 (09:21→21:00)
[2021-07-16] MEDS: MIDODRINE HCL (5MG) 5 MG TABLET PO SCH ×3 (09:22→17:19)
[2021-07-16] MEDS: POTASSIUM CHLORIDE 20 MEQ TAB.PRT.SR PO SCH ×2 (09:27→10:32)
[2021-07-16] MEDS: Magnesium 1GM/D5W 100ML PREMIX 100 ML IV SCH ×4 (09:27→12:28)
[2021-07-16] MEDS: DAKINS QUARTER STRENGTH (0.125%) 480 ML BOTTLE TOP SCH ×2 (09:37)
[2021-07-16] MEDS: SOD FERRIC GLUC 125 MG in IV NS 0.9% 100 ML IV SCH (14:09)
[2021-07-16 16:51] LABS: CALCIUM, SERUM 6.8 mg/dL (8.5-10.1); CREATININE 3.7 mg/dL (0.6-1.3); MAGNESIUM 2.7 mg/dL (1.8-2.4); POTASSIUM 3.2 mmol/L (3.5-5.1)
[2021-07-16] MEDS: VANCOMYCIN HCL 0.75 GM in IV D5W 250 ML IV SCH (16:57)
[2021-07-16 17:19] VITALS: BP 126/82
--- NOTE | 2021-07-16 19:00 | NUR ---
MS RN CLOSING NOTES PATIENT ON BED ASLEEP. PATIENT RESPONSIVE TO CALL. PATIENT ALERT AND ORIENTED X 4. PATIENT IS ON ROOM AIR TOLERATING WELL, WITH NO SIGNS OF DISTRESS. PATIENT WITH RIGHT UPPER ARM MIDLINE WITH IVF OF D5 1/2 NS WITH 50MEQ SODIUM BICARB RUNNING AT 50 ML/HR, INFUSING WELL. PATIENT WITH DECKER CATHETER TO URINE BAG WITH LIGHT YELLOW URINE. SAFETY MEASURES IN PLACED. PATIENT WITH ORDER FOR DISCHARGE. AWAITING PICK-UP. PATIENT AND BROTHER JULIANE VERBALIZED ENDORSEMENT. PATIENT REFUSED TO HAVE PICTURES TAKEN OF WOUND. ENDORSED ACCORDILGLY. CALL LIGHT WITHIN REACH. BED ON LOWEST LOCKED POSITION, SIDE RAILS UP X2. WILL ENDORSE PATIENT FOR CONTINUITY OF CARE.
[2021-07-16] MEDS ORDERED: POTASSIUM CHLORIDE 20 MEQ TAB.PRT.SR PO ONE (20:30)
[2021-07-16 20:31] LABS: CALCIUM, SERUM 6.9 mg/dL (8.5-10.1); CREATININE 3.8 mg/dL (0.6-1.3); MAGNESIUM 3.6 mg/dL (1.8-2.4); POTASSIUM 3.6 mmol/L (3.5-5.1)
--- NOTE | 2021-07-16 21:38 | NUR ---
ms rn notes pt susan dc, shayy darby pt in meera condition all paper work provided pt provided own transportation. wheeled out via wheel chair.
== END 2021-07-16 21:49 | disposition home health service (06) | DRG 422 ==
LOC: ER 22:40 → TRANSITION 07-12 03:59 → ICU 07-12 07:34 → MED 07-13 15:31
PROVIDERS: ADMIT Internal Medicine; ATTEND Internal Medicine
PROC: 02HV33Z Insertion of Infusion Device into Superior Vena Cava, Percutaneous Approach (ICD-10-PCS; 2021-07-12)
PROC: B548ZZA Ultrasonography of Superior Vena Cava, Guidance (ICD-10-PCS; 2021-07-12)
PROC: 30233N1 Transfusion of Nonautologous Red Blood Cells into Peripheral Vein, Percutaneous Approach (ICD-10-PCS; principal; 2021-07-13)
PROC: 0JBP0ZZ Excision of Left Lower Leg Subcutaneous Tissue and Fascia, Open Approach (ICD-10-PCS; 2021-07-14)
DX: E86.0 Dehydration (principal); E86.1 Hypovolemia; N17.0 Acute kidney failure with tubular necrosis; L03.115 Cellulitis of right lower limb; M86.172 Other acute osteomyelitis, left ankle and foot; E87.2 Acidosis; I87.313 Chronic venous hypertension (idiopathic) with ulcer of bilateral lower extremity; L03.116 Cellulitis of left lower limb; E87.1 Hypo-osmolality and hyponatremia; D50.9 Iron deficiency anemia, unspecified; F11.10 Opioid abuse, uncomplicated; L97.429 Non-pressure chronic ulcer of left heel and midfoot with unspecified severity; I12.9 Hypertensive chronic kidney disease with stage 1 through stage 4 chronic kidney disease, or unspecified chronic kidney disease; E87.5 Hyperkalemia; N18.9 Chronic kidney disease, unspecified; Z79.899 Other long term (current) drug therapy; Z79.890 Hormone replacement therapy; F17.200 Nicotine dependence, unspecified, uncomplicated; I87.2 Venous insufficiency (chronic) (peripheral); M10.9 Gout, unspecified; L97.519 Non-pressure chronic ulcer of other part of right foot with unspecified severity; L98.499 Non-pressure chronic ulcer of skin of other sites with unspecified severity; L97.819 Non-pressure chronic ulcer of other part of right lower leg with unspecified severity; E03.9 Hypothyroidism, unspecified; S71.101A Unspecified open wound, right thigh, initial encounter; X58.XXXA Exposure to other specified factors, initial encounter; Y92.9 Unspecified place or not applicable; E87.6 Hypokalemia
CPT/HCPCS: 36415; 71045-TC; 76770-TC; 80048-TC; 80053-TC; 80076-TC; 80202-TC; 83540-TC; 83690-TC; 83735-TC; 84443-TC; 85025-TC; 86850-TC; 87081-TC; 97116-TC; 97530-TC; A6253; A6403; C9803; G0378; G0480; J0885; J1644; J1815; J2543; J2916; J3370; J3475; J3490; J7030; J7040; J7042; J7060; P9016; Q0162